=== PATIENT | female | born 1950 | race Caucasian/White ===

== ENCOUNTER 2023-10-19 09:00 | Outpatient (CLI) | payer MEDICARE, SELFPAY ==
--- NOTE | ~2023-10-19 | CT_ITS ---
EXAMINATION: CT abdomen pelvis w con DATE: 10/19/2023 09:55 INDICATION: Unspecified abdominal pain TECHNIQUE: Computed tomography (CT) of the abdomen and pelvis was performed with 100 mL Omnipaque-350 intravenous contrast. Automated exposure control and iterative reconstruction technique were employe d. The dose-length product was 825.83 mGy-cm. COMPARISON: None FINDINGS: There are several calcified pleural and subpleural nodules at the bilateral lower lobes, calcified pa raesophageal node and a few tiny hepatic and splenic calcifications, all consistent with old granulom atous disease. Borderline heart size. Atherosclerotic coronary artery calcification. Bilateral breast implants. Small sliding-type hiatal hernia. Postoperative changes prior antecolic Jhonatan-en-Y gastric bypass procedure. Gallbladder, pancreas, bilateral adrenal glands and kidneys are normal. Moderate to large amount of colonic stool. No dilated loops of gas-filled bowel to suggest obstruction. Normal a ppendix. Bladder is normal. The uterus is not identified and has likely been surgically resected. No free intraperitoneal gas or fluid. No pathologically enlarged abdominal or pelvic lymphadenopathy. Mo derate lumbar spondylosis including grade 1 anterolisthesis L5 on L5 and L5 on S1. Likely chronic L3 superior endplate compression fracture with mild central vertebral body height loss. There are few bi lateral age-indeterminate but likely more recent rib fractures. IMPRESSION: 1. No acute intra-abdominal/pelvic process. 2. Small sliding-type hiatal hernia with change of prior Jhonatan-en-Y gastric bypass procedure. 3. A few bilateral age-indeterminate but likely relatively recent rib fractures. Correlate for point tenderness and history of recent trauma. Reviewed, dictated and finalized at location A. P CLERK IMPRESSION: 1. No acute intra-abdominal/pelvic process. 2. Small sliding-type hiatal hernia with change of prior Jhonatan-en-Y gastric bypa ss procedure. 3. A few bilateral age-indeterminate but likely relatively recent rib fractures . Correlate for point tenderness and history of recent trauma.
[2023-10-19 09:44] LABS: Estimated Glomerular Filt Rate > 60
== END 2023-10-19 09:01 | disposition home or self-care (01) ==
LOC: ANHIMG 09:07
PROVIDERS: PCP Internal Medicine; Visit Provider Nurse Practitioner Family
DX: R10.9 Unspecified abdominal pain (principal); K44.9 Diaphragmatic hernia without obstruction or gangrene
CPT/HCPCS: 74177; Q9967

== ENCOUNTER 2025-03-23 09:15 | Outpatient (CLI) | payer MEDICARE, SELFPAY ==
--- NOTE | ~2025-03-23 | CT_ITS ---
CT Scan of the Chest without Contrast: Clinical Indication: Lung cancer screening, nicotine dependence Technique: Contiguous sections were acquired throughout the chest without intravenous contrast. Dose reduction technique was used on this scan by utilizing automated exposure control and iterative recon struction technique. The dose-length product (DLP) was 85.86 mGy-cm. Findings: There is no evidence of any significant mediastinal, hilar or axillary lymphadenopathy. Calcified med iastinal lymph nodes are present. Coronary artery calcifications are present. There is no evidence of pleural or pericardial effusion. Calcified granulomas are present. There is focal left upper lobe scarring. Images through the upper abdomen reveal no abnormalities. Impression: Lung RADS 2: Benign appearance. 12 month follow-up screening CT advised. Reviewed, dictated and finalized at location . Impression: Lung RADS 2: Benign appearance. 12 month follow-up screening CT advised.
--- OUTSIDE RECORDS SUMMARY | 2025-03-23 09:19 | XMS_ITS ---
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 Laboratory testing for TSH, Vitamin B12, Methylmalonic acid, Vitamin B1, Copper, Zinc,Ceruloplasmin, Vitamin E, Immunotyping, Immunofixation, MARCO ANTONIO and ASIYA was negative. Malignant neoplasm of breast 02/18/2017 Lymphedema of left upper extremity 02/10/2016 Current Treatment and Therapy Plans No current plan information found. Past Treatment and Therapy Plans Lifetime Dose Tracking * Chemical Lifetime Dose Automatic Entry Manual Entr y Fluoro Time 2 minutes 2 minutes 0 minutes Resolved Problems Problem Noted Date Diagnosed Date Resolved Date Estrogen receptor positive status (ER+) 07/15/2015 07/18/2023
--- OUTSIDE RECORDS SUMMARY | 2025-03-23 09:19 | XMS_ITS | Clinical Summary ---
Author Organization [facility] Address [address] [place] [address] Care Team Providers Care Coal Tower Operator Name Role Phone Lebron Beauchamp MD Primary Care Provider [phone] Source Comments [facility],non-owned Affiliates and Associated Physician Practices is amultiple site organization consisting of ambulatory clinics and hospital sitesin [place], [place], [place] and [place]. This disclosure is being madepursuant to the Care Everywhere program and may not contain all information available regarding this patient. Last updated 18.[facility] Allergies No known active allergies Medications * Be aware that medications may not be up to date on this document. Alwaysverify current medications with the patient. ferrous sulfate 325 (65 FE) MG tabletIndications:A nemia Take 325 mg by mouth 2 times daily with breakfast and dinner. Indications: Anemia Activ e cyanocobalamin, vitamin B-12, injectionIndication s:Vitamin B12 Deficiency Inject 1,000 mcg into muscle every 30 days. Indications: Inadequate Vitamin B12 Active B Lpbqabf-D-Djmlt Acid (VITAMIN B COMPLEX WITH C) TABS Take 1 Tab by mouth once daily. Active Flaxseed, Linseed, (FLAXSEED OIL) 1000 MG CAPS Take by mouth. Activ e estradiol (ESTRACE) 1 MG tabletIndications:E strogen Deficiency (Inactive) Take 1 mg by mouth once daily. Takes only 1/2 per day. Doctor is trying to wean off. Indications: Deficiency of the Hormone Estrogen Active amiloride-hydrochlo rothiazide (MODURETIC) 5-50 MG tabletIndications:R ecurrent Calcium Nephrolithiasis Take 1 Tab by mouth. Three times a week, Tuesday Indications: Recurrent Calcium-Containing Kidney Stones Active esomeprazole (NEXIUM) 40 MG capsuleIndications: Symptomatic Gastroesophageal Reflux Disease (Inactive) Take 40 mg by mouth at bedtime. Indications: Gastroesophageal Reflux Disease with Current Symptoms Active citalopram (CELEXA) 40 MG tabletIndications:D epression Take 20 mg by mouth once daily. Indications: Depression Active aspirin 81 MG chew tablet Take 81 mg by mouth once daily. Active fexofenadine-pseudo ephedrine ER 12hr (VENUS-D) 60-120 MG tablet Take 1 Tab by mouth 2 times daily as needed. Active zolpidem (AMBIEN) 10 MG tabletIndications:I nsomnia Take 10 mg by mouth nightly as needed. Indications: Trouble Sleeping Active calcium citrate-vitamin D (CITRACAL PLUS D) 315-200 MG-UNIT tabletIndications:H ypocalcemia Take 1 Tab by mouth once daily. Indications: Low Amount of Calcium in the Blood Active isosorbide mononitrate CR 24hr (IMDUR) 30 MG tablet Take 1 Tab by mouth once daily. 30 Tab 2 012 Active pravastatin (PRAVACHOL) 40 MG tabletIndications:S hortness of breath,Chest pain Take 1 Tab by mouth at bedtime. 30 Tab 2 012 Active piroxicam (FELDENE) 20 MG capsule Take 1 Cap by mouth once daily. 30 Cap 11 014 Active ibuprofen (MOTRIN) 600 MG tablet Take 600 mg by mouth every 6 hours as needed for Pain. Activ e Delphi-3 Fatty Acids (FISH OIL) 1000 MG CAPS capsule Take 1,000 mg by mouth once daily. Active cyclobenzaprine (FLEXERIL) 10 MG tablet Take 10 mg by mouth 3 times daily as needed for Muscle Spasms. Active gabapentin (NEURONTIN) 300 MG capsule Take 300 mg by mouth 3 times daily. Active metFORMIN (GLUCOPHAGE) 500 MG tablet Take 500 mg by mouth 3 times daily. Active naproxen (NAPROSYN) 500 MG tablet Take 500 mg by mouth 2 times daily. Active clonazePAM (KLONOPIN) 1 MG tablet Take 1 mg by mouth 2 times daily. Active prochlorperazine (COMPAZINE) 10 MG tablet Take 10 mg by mouth as needed for Nausea/Vomiting. Active Ginkgo Biloba (GINKOBA PO) Take 60 mg by mouth 2 times daily. 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 Gender Identity Not on file Sexual Orientation Not on file Occupation Industry Job Start Date Job End Date RETIRED Not on file Not on file Not on file Last Filed Vital Signs Vital Sign Reading Time Taken Comments Blood Pressure 120/76 03/23/2012 2:00 PM CDT Pulse 100 03/23/2012 2:00 PM CDT Temperature 36.7 C (98 F) 03/23/2012 11:57 AM CDT Respiratory Rate 20 03/23/2012 11:57 AM CDT Oxygen Saturation 98% 03/23/2012 2:00 PM CDT Inhaled Oxygen Concentration - - Weight 84.4 kg (186 lb) 10/02/2014 12:14 PM METAL BOX MAKER Height 162.6 cm (5' 4) 10/02/2014 12:14 PM METAL BOX MAKER Body Mass Index 31.93 10/02/2014 12:14 PM METAL BOX MAKER Plan of Treatment Health Maintenance Due Date Last Done Comments BONE DENSITY TESTING 1950 COLOGUARD (AGES 45-75) - COL ON CA SCREENING 1950 COLON MONITORING 1950 COLONOSCOPY - COLON CA SCREENING 1950 CT COLONOGRAPHY - COLON CA SCREENING 1950 Colorectal Cancer Screening 1950 FIT - COLON CA SCREENING 1950 FLEX SIG - COLON CA SCREENING 1950 MAMMOGRAM 1950 HEPATITIS C SCREENING 04/14/1969 DTAP/TDAP/TD VACCINES (1 - Tdap) 1970 PNEUMOCOCCAL VACCINE 50+ (1 of 1 - PCV) 2001 ZOSTER VACCINE (1 of 2) 2001 COVID-19 VACCINE ( - 2023-2 5 season) 2024 DEPRESSION SCREENING 10/24/2024 INFLUENZA VACCINE (Season Ended) 2025 Respiratory Syncytial Virus (RSV) Vaccine Pt: or over 60 yrs (1 - 1-dose 75+ series) 2026 HEPATITIS B VACCINE Aged Out No longe r eligible based on patient's age to complete this topic HIB VACCINE Aged Out No longer eligi ble based on patient's age to complete this topic HPV VACCINE Aged Out No longer eligi ble based on patient's age to complete this topic MENINGOCOCCAL (Group B) VACC INE SHARED DECISION-MAKING Aged Out No longer eligibl e based on patient's age to complete this topic MENINGOCOCCAL GROUPS A/C/Y/W VACCINE Aged Out No longer eligible b ased on patient's age to complete this topic Insurance MEDICAID - [place] Advance Directives * FULL RESUSCITATION (Latest Code Status on File) Date Activated Date Inactivated Comments 03/22/2012 5:18 AM 03/24/2012 2:49 AM Care Teams Coal Tower Operator Relationship Specialty Start Date End Date Lebron Beauchamp MD [address] [place] [address] [address] [place] [address] PCP - General 03/22/12
--- OUTSIDE RECORDS SUMMARY | 2025-03-23 09:19 | XMS_ITS | Encounter Summary ---
Author Organization [facility] Address [address] [place] [address] Care Team Providers Care Supervisor Grips Name Role Phone Mae Diamond MD PhD Unavailable Lebron Beauchamp MD Primary Care Provider Bren Owens NP Unavailable [phone] Isabela Zacarias MD Unavailable [phone] Encounter Details Date Type Department Care Team (Late st Contact Info) Description 06/06/2019 Telephone [facility] Advanced Medicine Radiation Oncology [address] [facility] [place] [address] Peggy Mora CMA Social History Tobacco Use Types Packs/Day Years Used Date Smoking Tobacco: Former Smokeless Tobacco: Never Alcohol Use Standard Drinks/Week Comments No 0 (1 standard drink = 0.6 oz pur e alcohol) Comments No Sex and Gender Information Value Date Recorded Sex Assigned at Not on file Legal Sex Female 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 Gender Identity Female 07/03/2021 7:11 AM CDT Sexual Orientation Straight 07/03/2021 7: 11 AM CDT documented as of this encounter Plan of Treatment Not on file documented as of this encounter Visit Diagnoses Not on filedocumented in this encounter Care Teams Supervisor Grips Relationship Specialty Start Date End Date Lebron Beauchamp MD [address] [facility] [place] [address] PCP - General Internal Medicine 12/29/18 Ma, Mae Goins MD PhD 01/03/18 Bren Owens NP [address] [address] Nurse Practitioner Medical Oncology 07/20/22 Isabela Zacarias MD [address] [place] [address] Referring Physician Neurology 03/01/23 documented as of this encounter
--- OUTSIDE RECORDS SUMMARY | 2025-03-23 09:19 | XMS_ITS | Clinical Summary ---
Author Organization [facility] Healthcare Address [address] [place] [address] Care Team Providers Care Junior Designer Name Role Phone Mae Diamond MD PhD Unavailable Lebron Beauchamp MD Primary Care Provider Bren Owens NP Unavailable [phone] Isabela Zacarias MD Unavailable [phone] Allergies No known active allergies Medications cyanocobalamin (Vitamin B-12) 1,000 mcg/mL injectionIndica tions:Vitamin B12 Deficiency Inject 1 mL (1,000 mcg total) into the muscle as instructed every 30 (thirty) days Active AMILoride (MIDAMOR) 5 mg tabletIndicatio ns:hypertension Take 1 tablet (5 mg total) by mouth every morning Active ferrous sulfate ER 324 mg (65 mg iron) EC tabletIndicatio ns:Iron Deficiency Anemia Take 65 mg by mouth 2 (two) times a day with meals Active acetaminophen-a spirin-caffeine (EXCEDRIN MIGRAINE) 250-250-65 mg per tabletIndicatio ns:stop 7 days before surgery Take 2 tablets by mouth every 6 (six) hours as needed for headaches Active furosemide (LASIX) 20 mg tabletIndicatio ns:Edema,hypert ension Take 1 tablet (20 mg total) by mouth every morning 0 Active traZODone (DESYREL) 100 mg tabletIndicatio ns:insomnia associated with depression Take 1 tablet (100 mg total) by mouth nightly 0 Active amLODIPine (NORVASC) 5 mg tabletIndicatio ns:hypertension Take 1 tablet (5 mg total) by mouth daily after lunch 0 Active aspirin 81 mg enteric coated tabletIndicatio ns:heart health Take 1 tablet (81 mg total) by mouth every morning Active atorvastatin (LIPITOR) 40 mg tabletIndicatio ns:hyperlipidem ia Take 1 tablet (40 mg total) by mouth nightly Active gabapentin (NEURONTIN) 300 mg capsuleIndicati ons:Idiopathic peripheral neuropathy TAKE 2 CAPSULES BY MOUTH 3 TIMES A DAY 540 capsule 2 2 Active Additional Information Patient taking differently: 600 mg oral 3 times daily, Indications: Neuropathic Pain, Informant: Self, Reported on 03/09/2023 omega3/dha/epa/ fish oil/vit D3 (OMEGA-3 PLUS VITAMIN D3 ORAL) Take 1 capsule by mouth as needed Active melatonin 10 mg tabletIndicatio ns:sleep Take 1 tablet (10 mg total) by mouth nightly Active vit C/E/Zn/coppr/krystal tein/zeaxan (PRESERVISION AREDS-2 ORAL)Indication s:eye health Take 1 tablet by mouth 2 (two) times a day Active ibuprofen (ADVIL,MOTRIN) 600 mg tablet Take 1 tablet (600 mg total) by mouth every 6 (six) hours 30 tablet 3 Active Additional Information Patient not taking.Reported on 05/12/2023 Abilify 15 mg tablet Active clobetasoL (TEMOVATE) 0.05 % ointment Active clotrimazole (MYCELEX) 10 mg juan pablo Active desoximetasone (TOPICORT) 0.25 % cream Active doxycycline (doxycycline hyclate) 100 mg capsule Active ergocalciferol (VITAMIN D) 50,000 unit capsule Take 1 capsule (50,000 Units total) by mouth once a week 3 Active oxyCODONE (ROXICODONE) 5 mg immediate release tablet Activ e DULoxetine DR (CYMBALTA) 60 mg capsule [address] (NexIUM) 20 mg capsule Take by mouth daily 4 Active HYDROcodone-gita taminophen (NORCO) 7.5-325 mg per tablet Take 1 tablet by mouth 3 (three) times a day as needed 3 Active Ozempic 1 mg/dose (4 mg/3 mL) pen injector injection [address] (NexIUM) 20 mg capsule Take 1 tablet by mouth daily Active clobetasoL (TEMOVATE) 0.05 % ointment Active estradioL (ESTRACE) 0.01 % (0.1 mg/gram) vaginal cream Insert 1 g into the vagina 3 (three) times a week Apply nightly to vagina for 1 week, then Tuesday/Tuesday / Tuesday 42.5 g 5 4 Active letrozole (FEMARA) 2.5 mg tablet TAKE 1 TABLET BY MOUTH EVERY DAY 90 tablet 3 4 Active Active Problems Problem Noted Date Diagnosed Date [...] 02/18/2017 Lymphedema of left upper extremity 02/10/2016 Resolved Problems Problem Noted Date Diagnosed Date Resolved Date Estrogen receptor positive status (ER+) 07/15/2015 07/18/2023 Encounters Date Type Department Care Team Description 12/24/2024 Telephone [facility] Floor [address] [place] [address] Karyan Cerda, RMA from Last 3 Months Immunizations Immunization Administration Dates Next Due Influenza, Trivalent, IM ([facility]) 08/27/2014 Surgical History Surgery Date Site/Laterality Comments CATARACT EXTRACTION W/ INTRAOCULAR LENS IMPLANT 10/24/2020 - 10/23/2021 Bilateral PANNICULECTOMY 10/24/1989 - 10/23/1990 HYSTERECTOMY 10/24/1997 - 10/23/1998 radical total GASTRIC BYPASS 10/24/2008 - 10/23/2009 HEMORRHOID SURGERY 10/24/1999 - 10/23/2000 LITHOTRIPSY 10/24/1999 - 10/23/2000 MASTECTOMY 10/24/2011 - 10/23/2012 Bilateral Bilateral Mastectomy 2011 w/ LND Left REDUCTION MAMMAPLASTY 10/24/2005 - 10/23/2006 TOTAL KNEE ARTHROPLASTY 10/24/2020 - 10/23/2021 Left 2020 TOE AMPUTATION 10/24/2022 - 10/23/2023 Left great toe, second toe FOOT SURGERY 01/06/2018 Left arthoplasty VAGINAL DELIVERY x 3 w/ epidural COLONOSCOPY UPPER GASTROINTESTINAL ENDOSCOPY Medical History Medical History Date Comments Hypertension Hyperlipidemia GERD (gastroesophageal reflux disease) Cancer (HCC) Bilateral Breast Type 2 diabetes mellitus (HCC) Lymph edema Left arm Kidney stone Anemia Depression Sleep apnea uses CPAP Breast cancer (HCC) Family History * Patient is adopted Medical History Relation Name Comments No Known Problems Child son Thyroid disease Daughter 1 Thyroid disease Daughter 2 Anesthesia problems Neg Hx Relation Name Status Comments Child son Alive Daughter 1 Alive Daughter 2 Alive Social History Tobacco Use Types Packs/Day Years Used Date Smoking Tobacco: Former Cigarettes 2.5 15 1 - 1994 Smokeless Tobacco: Never Tobacco Cessation:Counseling Given: Not Answered Alcohol Use Standard Drinks/Week Comments No 0 (1 standard drink = 0.6 oz pur e alcohol) AUDIT-C Answer Date Recorded Q1: How often do you have a drink containing alcohol? Never 03/09/2023 Q2: How many drinks containi ng alcohol do you have on a typical day when you are drinking? Patient does not drink Q3: How often do you have si x or more drinks on one occasion? Never 03/09/2023 Personal Safety Answer Date Recorded Have you ever been in or are you currently in a harmful physical or emotional relationship or is someone making you feel afraid or unsafe? Denies 04/05/2023 Comments No Sex and Gender Information Value Date Recorded Sex Assigned at Not on file Legal Sex Female 1:15 AM CUSTOMER SUPPORT CONSULTANT Gender Identity Female 07/03/2021 7:11 AM CDT Sexual Orientation Straight 07/03/2021 7: 11 AM CDT Obstetrics History Para Term AB IAB SAB Ectopic Multiple Livin g Live Births 4 3 3 1 1 3 Date Outcome GA Total Labor Labor/2nd/3rd Weight Sex Type Anes PTL [place] A1 A5 Name Clin Term Term Term SAB Last Filed Vital Signs Vital Sign Reading Time Taken Comments Blood Pressure 124/78 11/04/2023 10:35 AM CUSTOMER SUPPORT CONSULTANT Pulse 83 09/20/2023 8:48 AM CUSTOMER SUPPORT CONSULTANT Temperature 36.3 C (97.3 F) 09/20/2023 8:48 AM CUSTOMER SUPPORT CONSULTANT Respiratory Rate 18 09/20/2023 8:48 AM CUSTOMER SUPPORT CONSULTANT Oxygen Saturation 98% 09/20/2023 8:48 AM CUSTOMER SUPPORT CONSULTANT Inhaled Oxygen Concentration - - Weight 78.2 kg (172 lb 6.4 oz) 11/04/2023 10:35 AM CUSTOMER SUPPORT CONSULTANT Height 160 cm (5' 3) 11/04/2023 10:35 AM CUSTOMER SUPPORT CONSULTANT Body Mass Index 30.54 11/04/2023 10:35 AM CUSTOMER SUPPORT CONSULTANT Plan of Treatment Health Maintenance Due Date Last Done Comments Breast Cancer Screening-Mammogram 1951 Colon Cancer Screening-Colonoscopy 1951 Depression Screening 1951 Hepatitis C Screening 1951 DTaP/Tdap/Td Vaccine (1 - Tdap) 1962 Hepatitis B Screening 1969 Pneumococcal vaccine 65+ (1 of 2 - PCV) 1970 Zoster Vaccine (1 of 2) 1970 Well Visit 65+ 2016 Fall Risk Assessment 04/05/2024 04/05/2023 Influenza Vaccine (Season Ended) 2025 08/27/20 14 Osteoporosis Screening-Bone Density Scan 11/04/2025 11/04/2023, 07/23/2021, 07/16/2015, Additional history exists Medical Devices Implanted Type Area Farm Contractor Buyer Device Identifier Shelf Expiration Date Model / Serial / Lot Implant Fixation L6 Mm Od3.4 Mm Odsec3 Mm Toe 2 Step Hammer - [id number] Implanted:Qty : 2 on 01/06/2018 by Lebron Flaherty DPM at [facility] Screw Left: Metatarsal [employer] 6 / / Description:6mm implant in b oth third and fourth digits Implant Fixation L8 Mm Od3.4 Mm Odsec3 Mm Toe 2 Step Hammer - [id number] Implanted:Qty : 1 on 01/06/2018 by Lebron Flaherty DPM at [facility] Screw Left: Metatarsal [employer] 8 / / Description:8mm implant in s econd digit Wire Fixation Sandie Standard L6 In Od.45 In - [id number] Implanted:Qty : 3 on 01/06/2018 by Lebron Flaherty DPM at [facility] Wire Left: Metatarsal [employer] 4 / / Description:2nd, 3rd, 4th to e Procedures Procedure Name Priority Date/Time Associated Diagnosis Comments DEXA AXIAL SKELETON BONE DENSITY 1 OR MORE SITES Schedule Routine, Read Routine (OP Routine) 11/04/2023 10:22 AM CUSTOMER SUPPORT CONSULTANT Malignant neoplasm of left breast in female, estrogen receptor positive, unspecified site of breast (HCC) Use of aromatase inhibitors from Last 3 Months or Most Recently Relevant to Health Maintenance Results * Dexa Axial Skeleton Bone Density 1 or 2 Site (11/04/2023 10:22 AM CUSTOMER SUPPORT CONSULTANT) Anatomical Region Laterality Modality Body N/A Mammography 11/04/2023 10:4 5 AM CUSTOMER SUPPORT CONSULTANT Narrative 11/04/2023 10:46 AM CUSTOMER SUPPORT CONSULTANT EXAM DESCRIPTION: DEXA AXIAL SKELETON BONE DENSITY 1 OR MORE SITES REASON FOR STUDY: 73 y/o year old F with given history of: On aromatase inhibitor therapy for breast carcinoma. Patient takes vitamin-D. History of prior fracture Farm Contractor Buyer/Model: [employer] A (S/N [id number]) CLINICAL INFORMATION: Current height: 63 inches Maximum height: 65 inches Weight: 170 pounds Risk factors: Prior fracture COMPARISON: None available FINDINGS: AP LUMBAR SPINE L1-L4: Total BMD is 1.038 g/cm2 T-score is -0.1 LEFT HIP: Total BMD is 0.652 g/cm2 T-score is -2.4 Femoral neck BMD is 0.628 g/cm2 T-score is -2.0 FRAX: 10 year risk for a major osteoporotic fracture is 18 %, 10 year risk for a hip fracture is 3.6 % IMPRESSION: Low bone mass REFERENCE: Bone mineral density: Normal (T-score above or = -1.0) Low bone mass (T-score between -1.0 and -2.5) replaces the previously used term osteopenia Osteoporosis (T-score = or below -2.5) Medical evaluation for secondary causes of low bone mineral density may be appropriate. FRAX is a World Health Organization validated fracture risk assessment tool that calculates a person's 10 year probability of a major osteoporosis related fracture and hip fracture. According to the National Osteoporosis Foundation guidelines, postmenopausal women and men age 50 or older with low bone mass and a 10 year probability of a major osteoporosis related fracture = or greater than 20% or a 10 year probability of a hip fracture = or greater than 3% should be considered for treatment. For further information, including treatment recommendations, please refer to the 2019 ISCD Official Positions (http://www.iscd.org) and the NOF's Clinician's Guide to Prevention and Treatment of Osteoporosis (http://www.nof.org/professionals/clinical-guidelines) THIS IS AN ELECTRONICALLY VERIFIED FINAL REPORT 11/04/2023 10:46 AM - Electronically signed by Pari Ayon M.D. TW: TW Report ID: [id number] Reading Location: [id number] Procedure Note Pari Ayon MD - 11/04/2023 EXAM DESCRIPTION: DEXA AXIAL SKELETON BONE DENSITY 1 OR MORE SITES REASON FOR STUDY: 73 y/o year old F with given history of: Onaromatase inhibitor therapy for breast carcinoma. Patient takes vitamin-D. Historyof prior fracture Farm Contractor Buyer/Model: [employer] A (S/N [id number]) CLINICAL INFORMATION: Current height: 63 inches Maximum height: 65 inches Weight: 170 pounds Risk factors: Prior fracture COMPARISON: None available FINDINGS: AP LUMBAR SPINE L1-L4: Total BMD is 1.038 g/cm2 T-score is -0.1 LEFT HIP: Total BMD is 0.652 g/cm2 T-score is -2.4 Femoral neck BMD is 0.628 g/cm2 T-score is -2.0 FRAX: 10 year risk for a major osteoporotic fracture is 18 %, 10 year risk for ahip fracture is 3.6 % IMPRESSION: Low bone mass REFERENCE: Bone mineral density: Normal (T-score above or = -1.0) Low bone mass (T-score between -1.0 and -2.5) replaces thepreviously used term osteopenia Osteoporosis (T-score = or below -2.5) Medical evaluation for secondary causes of low bone mineral density may be appropriate. FRAX is a World Health Organization validated fracture risk assessmenttool that calculates a person's 10 year probability of a major osteoporosisrelated fracture and hip fracture. According to the National OsteoporosisFoundation guidelines, postmenopausal women and men age 50 or older with low bonemass and a 10 year probability of a major osteoporosis related fracture = or greater than 20% or a 10 year probability of a hip fracture = or greaterthan 3% should be considered for treatment. For further information, including treatment recommendations, please referto the 2019 ISCD Official Positions (http://www.iscd.org) and the NOF's Clinician's Guide to Prevention and Treatment of Osteoporosis (http://www.nof.org/professionals/clinical-guidelines) THIS IS AN ELECTRONICALLY VERIFIED FINAL REPORT 11/04/2023 10:46 AM - Electronically signed by Pari Ayon M.D. TW: LELAND Report ID: [id number] Reading Location: [id number] us Bren Owens NP IMG DXA PROCEDURES Lety nikki Result from Last 3 Months or Most Recently Relevant to Health Maintenance Insurance UHC MDCR HMO REF [facility] Address: [address] [address] [place] [address] UHC MEDICARE ADVANTAGE [facility] Address: [address] [address] [place] [address] MEDICARE ADVANTAGE [facility] MEDIC[facility] Address: [address] [address] [place] [address] Advance Directives For more information, please contact: [phone] * Full Code (Latest Code Status on File) Date Activated Date Inactivated Comments 01/06/2018 10:50 AM 01/06/2018 1:53 PM Care Teams Junior Designer Relationship Specialty Start Date End Date Lebron Beauchamp MD [address] [address] PCP - General Internal Medicine 12/29/18 Mae Diamond MD PhD 01/03/18 Bren Owens NP [address] [address] Nurse Practitioner Medical Oncology 07/20/22 Isabela Zacarias MD [address] [address] Referring Physician Neurology 03/01/23
--- OUTSIDE RECORDS SUMMARY | 2025-03-23 09:19 | XMS_ITS | Referral Summary ---
Author Organization [facility] Healthcare Address [address] [place] [address] Care Team Providers Care Aerial Photogrammetrist Name Role Phone Mae Diamond MD PhD Unavailable Lebron Beauchamp MD Primary Care Provider Bren Owens NP Unavailable [phone] Isabela Zacarias MD Unavailable Encounters Date Type Department Care Team Description 12/24/2024 Telephone [facility] Oncology [address] [facility] [address] [place] [address] Karyna Cerda, JONAH from Last 3 Months Allergies No known active allergies Medications cyanocobalamin [...] Estrogen receptor positive status (ER+) 07/15/2015 07/18/2023 Immunizations Immunization Administration Dates Next Due Influenza, Trivalent, IM (MDV) 08/27/2014 Social History Tobacco Use Types Packs/Day Years Used Date Smoking Tobacco: Former Cigarettes 2.5 15 1 980 - 1994 Smokeless Tobacco: Never Tobacco Cessation:Counseling [...] on file Legal Sex Female 1:15 AM BACK TENDER Gender Identity Female 07/03/2021 7:11 AM CDT Sexual Orientation Straight 07/03/2021 7: 11 AM CDT Last Filed Vital Signs Vital Sign Reading Time Taken Comments Blood Pressure 124/78 11/04/2023 10:35 AM BACK TENDER Pulse 83 09/20/2023 8:48 AM BACK TENDER Temperature 36.3 C (97.3 F) 09/20/2023 8:48 AM BACK TENDER Respiratory Rate 18 09/20/2023 8:48 AM BACK TENDER Oxygen Saturation 98% 09/20/2023 8:48 AM BACK TENDER Inhaled Oxygen Concentration - - Weight 78.2 kg (172 lb 6.4 oz) 11/04/2023 10:35 AM BACK TENDER Height 160 cm (5' 3) 11/04/2023 10:35 AM BACK TENDER Body Mass Index 30.54 11/04/2023 10:35 AM BACK TENDER Plan of Treatment Not on file Medical Devices Implanted Type Area Admissions Consultant Device Identifier Shelf Expiration Date Model / Serial / Lot Implant Fixation L6 Mm Od3.4 Mm Odsec3 Mm Toe 2 Step Hammer - [id number] Implanted:Qty : 2 on 01/06/2018 by Lebron Flaherty DPM at [facility] Screw Left: Metatarsal [employer] 6 / / Description:6mm implant in b oth third and fourth digits Implant Fixation L8 Mm Od3.4 Mm Odsec3 Mm Toe 2 Step Hammer - [id number] Implanted:Qty : 1 on 01/06/2018 by Lebron Flaherty DPM at [facility] Screw Left: Metatarsal [employer] 8 / / Description:8mm implant in s econd digit Wire Fixation Sandie Standard L6 In Od.45 In - [id number] Implanted:Qty : 3 on 01/06/2018 by Lebron Flaherty DPM at [facility] Wire Left: Metatarsal [employer] 4 / / Description:2nd, 3rd, 4th to e Procedures Procedure Name Priority Date/Time Associated Diagnosis Comments DEXA AXIAL SKELETON BONE DENSITY 1 OR MORE SITES Schedule Routine, Read Routine (OP Routine) 11/04/2023 10:22 AM BACK TENDER Malignant neoplasm of left breast in female, estrogen receptor positive, unspecified site of breast (HCC) Use of aromatase inhibitors from Last 3 Months or Most Recently Relevant to Health Maintenance Results * Dexa Axial Skeleton Bone Density 1 or 2 Site (11/04/2023 10:22 AM BACK TENDER) Anatomical Region Laterality Modality Body N/A Mammography 11/04/2023 10:4 5 AM BACK TENDER Narrative 11/04/2023 10:46 AM BACK TENDER EXAM DESCRIPTION: DEXA AXIAL SKELETON BONE DENSITY 1 OR MORE SITES REASON FOR STUDY: 73 y/o year old F with given history of: On aromatase inhibitor therapy for breast carcinoma. Patient takes vitamin-D. History of prior fracture Admissions Consultant/Model: [employer] A (S/N [id number]) CLINICAL INFORMATION: Current height: 63 inches Maximum [...] Pari Ayon M.D. TW: TW Report ID: [id number] Reading Location: [id number] Procedure Note Pari Ayon MD - 11/04/2023 EXAM DESCRIPTION: DEXA AXIAL SKELETON BONE DENSITY 1 OR MORE SITES REASON FOR STUDY: 73 y/o year old F with given history of: Onaromatase inhibitor therapy for breast carcinoma. Patient takes vitamin-D. Historyof prior fracture Admissions Consultant/Model: [employer] Horizon A (S/N [id number]) CLINICAL INFORMATION: Current height: 63 inches Maximum [...] 11/04/2023 10:46 AM - Electronically signed by aPri Ayon M.D. TW: LELAND Report ID: [id number] Reading Location: [id number] Bren Owens NP IMG DXA PROCEDURES Lety l Result from Last 3 Months or Most Recently Relevant to Health Maintenance Insurance [facility] MDCR HMO REF [facility] Address: [address] [address] [place] [address] UHC MEDICARE ADVANTAGE [facility] MED[facility] Address: [address] [address] [place] [address] MEDICARE ADVANTAGE [facility] MEDIC[facility] Address: [address] [address] [place] [address] Advance Directives For more information, please contact: [phone] * Full Code (Latest Code Status on File) Date Activated Date Inactivated Comments 01/06/2018 10:50 AM 01/06/2018 1:53 PM Care Teams Aerial Photogrammetrist Relationship Specialty Start Date End Date Lebron Beauchamp MD [address] [address] PCP - General Internal Medicine 12/29/18 Mae Diamond MD PhD 01/03/18 Bren Owens, MILO [address] [address] Nurse Practitioner Medical Oncology 07/20/22 Isabela Zacarias MD [address] [address] Referring Physician Neurology 03/01/23
--- OUTSIDE RECORDS SUMMARY | 2025-03-23 09:19 | XMS_ITS | Clinical Summary ---
Author Organization [facility] Address [address] [place] [address] Phone Care Team Providers Care Shale Miner Blasting Name Role Phone Chantale Delarosa MD Primary Care Provider [phone] Allergies No known active allergies Medications P-EPHED HCL/FEXOFENADIN E HCL (VENUS-D 12 HOUR PO) Take by mouth. Active AMILORIDE HCL (AMILORIDE PO) Take by mouth. Active aspirin (ANITRA) 81 mg Oral Tab Take 81 mg by mouth daily. Active MULTIVITAMINS W-MINERALS/LUT (CENTRUM SILVER PO) Take by mouth. Active estradiol (ESTRACE) 1 mg Oral tablet Take 1 mg by mouth daily. Active ferrous sulfate 325 mg (65 mg Iron) Oral tablet Take 325 mg by mouth daily. Active OMEGA-3 FATTY ACIDS (FISH OIL PO) Take by mouth. Active ESOMEPRAZOLE MAG TRIHYDRATE (NEXIUM PO) Take by mouth. Active piroxicam (FELDENE) 10 mg Oral Cap Take 10 mg by mouth daily. Active pravastatin (PRAVACHOL) 40 mg Oral tablet Take 40 mg by mouth Daily LATE. Active zolpidem (AMBIEN) 10 mg Oral tablet Take 10 mg by mouth nightly as needed for Insomnia. Active CALCIUM PO Take by mouth. Active Active Problems Patient Care Coordination No te Formatting of this note migh t be different from the original. Primary Care: Lebron Beauchamp MD Referring Provider: Jayme Saavedra [address] [place] [address] Other: Problem Noted Date Diagnosed Date Diffuse cystic mastopathy 12/19/2009 Abnormal mammogram, unspecified 11/28/2009 Gastric ulcer, unspecified a s acute or chronic, without mention of hemorrhage, perforation, or obstruction Colitis Kidney stones Unspecified deficiency anemia Social History Tobacco Use Types Packs/Day Years Used Date Smoking Tobacco: Former Comments: Alcohol Use Standard Drinks/Week Comments No 0 (1 standard drink = 0.6 oz pur e alcohol) Comments No Sex and Gender Information Value Date Recorded Sex Assigned at Not on file Legal Sex Female 5:50 AM MECHANICAL OPERATOR Gender Identity Not on file Sexual Orientation Not on file Last Filed Vital Signs Vital Sign Reading Time Taken Comments Blood Pressure 147/97 11/28/2009 1:49 PM MECHANICAL OPERATOR Pulse - - Temperature - - Respiratory Rate - - Oxygen Saturation - - Inhaled Oxygen Concentration - - Weight 86.6 kg (191 lb) 11/28/2009 1:49 PM MECHANICAL OPERATOR Height 162.6 cm (5' 4) 11/28/2009 1:49 PM MECHANICAL OPERATOR Body Mass Index 32.79 11/28/2009 1:49 PM MECHANICAL OPERATOR Plan of Treatment Health Maintenance Due Date Last Done Comments DTAP/TDAP/TD VACCINES (1 - Tdap) 1970 COLORECTAL SCREENING 1996 Colorectal Cancer Screening 1996 FIT-DNA Q 3 years 1996 FIT/FOBT Q 1 year 1996 Flex Sig/CT Colonography Q 5 years 1996 PNEUMOCOCCAL VACCINE 50+ YEA RS (1 of 1 - PCV) 2001 ZOSTER VACCINE (1 of 2) 2001 BREAST CANCER SCREENING 06/04/2011 06/04/20 10, 05/02/2009, 04/23/2009, Additional history exists OSTEOPOROSIS SCREENING 2016 INFLUENZA VACCINE (#1) 2024 Preventative Visit- Commercial 10/24/2024 RSV VACCINE (60+ or ) (1 - 1-dose 75+ series) 2026 Procedures Procedure Name Priority Date/Time Associated Diagnosis Comments MAMMO SCREEN BILAT W OR WO CAD Routine 06/04/2010 from Last 3 Months or Most Recently Relevant to Health Maintenance Results * MAMMO DIGITAL SCREEN BILAT (06/04/2010) Anatomical Region Laterality Modality Breast Bilateral Other us Abstract Provider MAMMO ORDERABLES Final Result from Last 3 Months or Most Recently Relevant to Health Maintenance Insurance [employer] OPEN ACCESS [employer] Care Teams Shale Miner Blasting Relationship Specialty Start Date End Date Chantale Delarosa MD [address] [place] [address] PCP - General Internal Medicine 10/05/21
--- OUTSIDE RECORDS SUMMARY | 2025-03-23 09:19 | XMS_ITS | Patient Health Record ---
Author Organization [facility] Address [address] [place] [address] Care Team Providers Care Handle Bender Name Role Phone Neil Rivera Primary Care Provider [phone] Charlee Osborn Unavailable [phone] Brisa Sow Unavailable [phone] Christopher Rob Unavailable [phone] Allergies No Known Allergies Reason For Referral No Information Medications Medication SIG (Take, Route, Frequency, Duration) Notes Start Date End Date Status traZODone HCl 300 MG 1 tablet Orally at bedtime as needed for 30 days Please fill on Tuesday per patient request. Thanks! Active DULoxetine HCl 60 MG 1 capsule Orally On ce a day for 30 days Please fill on Tuesday per patient request. Thanks! Active Abilify 15 MG 0.5 tablet Orally at night for 30 days Please fill on Tuesday per patient request. Thanks! Active Ozempic (1 MG/DOSE) 4 MG/3ML 1mg once weekly Subcutaneous Active Furosemide 20 MG 1 tablet Orally Once a day for 30 day(s) 02/19/2020 Active Atorvastatin Calcium 40 MG 1 tablet Orally Once a day for 30 day(s) Active metFORMIN HCl 500 MG 1 tablet with a gideon l Orally Once a day for 30 day(s) Active Social History Tobacco Use: Social History Observation Description Date Details (start date - stop date) Former Smoker NA - NA Sex Assigned At : Social History Observation Description Sex Assigned At Female Dont use, Tobacco Use/Smoking Question Answer Notes Are you a nonsmoker Tobacco Control (Standard) Question Answer Notes Tobacco use: Former smoker Problems Problem Type SNOMED Code ICD Code Onset Dates Problem Status W/U Status Risk Notes Problem Bipolar II disorder (27639893) Bipolar II disorder (F31.81) 08/03/20 22 Active confirmed history of hypomanic symptoms lasting few days with sleep changes, irritability , increased energy/goal oriented behaviors as well as low depressive episodes. Problem [id number] Major depression (F32.9) 04/30/20 16 Active confirmed Problem Posttraumatic stress disorder (81156589) PTSD (post-traumat ic stress disorder) (F43.10) Active confirmed Problem Acute stress disorder (61989489) Acute stress disorder (F43.9) Active confirmed Problem Difficulty sleeping (667099413) Difficulty sleeping (G47.9) Active confirmed Problem Stress (17842044) Stress (F43.9) Active confirmed Vital Signs Heart Rate 97 /min 04/25/2024 Respiratory Rate 16 /min 04/25/2024 Oximetry 98 % 04/25/2024 Blood pressure diastolic 68 mm Hg 04/25/2024 Height 63.5 in 12/25/2024 Blood pressure systolic 122 mm Hg 04/25/2024 Weight 158 lbs 12/25/2024 BMI 27.55 kg/m2 12/25/2024 Encounters Encounter Location Date Provider Diagnosis [address] [address] 03/29/2024 Brisa Magi Major depression F32.9 ; PTSD (post-traumatic stress disorder) F43.10 and Bipolar II disorder F31.[address] [address] 04/25/2024 Brisa Sow Nutritional counseling Z71.3 ; Major depression F32.9 ; PTSD (post-traumatic stress disorder) F43.10 and Bipolar II disorder F31.[address] [address] 06/14/2024 Brisadenzel Sow Major depression F32.9 ; PTSD (post-traumatic stress disorder) F43.10 ; Bipolar II disorder F31.81 and Nutritional counseling Z71.[address] [address] 09/05/2024 Christopher Rob Bipolar II disorder F31.81 ; Major depression F32.9 ; PTSD (post-traumatic stress disorder) F43.10 ; Difficulty sleeping G47.9 and Nutritional counseling Z71.[address] [address] 10/02/2024 Christopher Rob Bipolar II disorder F31.81 ; Major depression F32.9 ; PTSD (post-traumatic stress disorder) F43.10 ; Difficulty sleeping G47.9 and Nutritional counseling Z71.[address] [address] 11/01/2024 Christopher Rob Bipolar II disorder F31.81 ; Major depression F32.9 ; PTSD (post-traumatic stress disorder) F43.10 ; Difficulty sleeping G47.9 and Nutritional counseling Z71.[address] [address] 12/25/2024 Christopher Rob Bipolar II disorder F31.81 ; Major depression F32.9 ; PTSD (post-traumatic stress disorder) F43.10 ; Difficulty sleeping G47.9 and Nutritional counseling Z71.[address] [address] 03/23/2024 Brisa Sow PTSD (post-traumatic stress disorder) F43.10 ; Major depression F32.9 and Bipolar II disorder F31.[address] [address] 09/05/2024 Christopher Rob Assessments Encounter Date Diagnosis (ICD Code) Assessment Notes Treatment Notes Treatment Clinical Notes Section Notes 03/23/2024 PTSD (post-traumatic stress disorder) (ICD-10 - F43.10) 03/29/2024 Major depression (ICD-10 - F32.9) Pt reports that she is doing well on medications at this time and reports that she is not wanting to make any med changes at this time. Pt denies SI/HI. Encouraged pt to schedule therapy appt. Pt has been tolerating med well. 04/25/2024 Nutritional counseling (ICD-10 - Z71.3) 09/05/2024 Bipolar II disorder (ICD-10 - F31.81) history of hypomanic symptoms lasting few days with sleep changes, irritability, increased energy/goal oriented behaviors as well as low depressive episodes. Duration (acute/chronic), stability (controlled/uncontroll ed): Chronic, mildly uncontrolled Current medications/efficacy: Somewhat, room for improvement Previous medication trials: Hydrocodone, melatonin, Ambien, aripiprazole, duloxetine Current/previous therapies: Had been following up with therapy, reportedly lost contact, cannot remember when last appointment was Examination as documented - see pertinent aspects of office visit documentation. Pertinent diagnostics: LABS MONITORED BY PCP Differential diagnoses: RECOMMENDATIONS: INCREASE trazodone as prescribed to evens with mood/sleep - educated patient/guardian on adverse effects, risks and benefits, as well as alternative treatments Continue/modify other medications as prescribed - educated patient/guardian on adverse effects, risks and benefits, as well as alternative treatments Consume well balanced diet, preferably low in saturated fats (solid at room temperature, such as butter, margarine, Crisco, etc) and low in sodium (<2,000mg per day). Consume plenty of fruits/vegetables, healthy grains/whole grains, unsaturated/healthy fats (liquid at room temperature, such as olive oil, sunflower seed oil, canola, vegetable, etc.). Exercise regularly - Develop an exercise routine. 30 minutes of moderate exercise (walking at a brisk pace) 5 times per week is recommended. You should work hard enough to cause a sweat but still be able to talk with others while exercising. Exercise improves overall health - improves blood pressure and blood sugar, helps control weight, reduces stress, and improves mood. Practice stress reduction techniques, such as guided imagery, journaling, aromatherapy, acupuncture/acupressur e, deep breathing, etc. Practice healthy sleep hygiene - maintain regular routine, no caffeine after 1PM, no exercise 1-2 hours prior to bedtime, keep bedroom dark and cool, no TV or electronics while in bed. Consider melatonin as needed. Consider cognitive behavioral therapy for insomnia (CBT-I). Consider/Continue therapy. Consider/Continue substance cessation therapy as needed - contact office if desiring medication assisted therapy. Manage co-morbid conditions. Continue monitoring symptoms - report persistent or worsening/concerning symptoms to the office or go to the ER. For mental health CRISIS, please reach out to [phone] (National Suicide and Crisis Lifeline), 911, go to the emergency department, or contact the [facility] Crisis Unit/Team. Follow up as scheduled in 4 weeks or sooner if necessary. Follow up with PCP and/or other specialists as advised. NEXT STEP: Consider increasing trazodone pending response/tolerability. Considering increasing aripiprazole as needed. Consider increasing duloxetine as needed. Consider adding other SSRI/antidessant as needed. Consider adding other mood stabilizing agent as needed, such as lamotrigine. 09/05/2024 Major depression (ICD-10 - F32.9) See assessment and plan for bipolar II disorder 10/02/2024 Bipolar II disorder (ICD-10 - F31.81) history of hypomanic symptoms lasting few days with sleep changes, irritability, increased energy/goal oriented behaviors as well as low depressive episodes. Duration (acute/chronic), stability (controlled/uncontroll ed): Chronic, noticeably improved with recent medication adjustments, see HPI Current medications/efficacy: Somewhat, room for improvement Previous medication trials: Hydrocodone, melatonin, Ambien, aripiprazole, duloxetine Current/previous therapies: Had been following up with therapy, reportedly lost contact, cannot remember when last appointment was Examination as documented - see pertinent aspects of office visit documentation. Pertinent diagnostics: LABS MONITORED BY PCP Differential diagnoses: RECOMMENDATIONS: CONTINUE trazodone as prescribed to evens with mood/sleep - educated patient/guardian on adverse effects, risks and benefits, as well as alternative treatments Continue/modify other medications as prescribed - educated patient/guardian on adverse effects, risks and benefits, as well as alternative treatments Consume well balanced diet, preferably low in saturated fats (solid at room temperature, such as butter, margarine, Crisco, etc) and low in sodium (<2,000mg per day). Consume plenty of fruits/vegetables, healthy grains/whole grains, unsaturated/healthy fats (liquid at room temperature, such as olive oil, sunflower seed oil, canola, vegetable, etc.). Exercise regularly - Develop an exercise routine. 30 minutes of moderate exercise (walking at a brisk pace) 5 times per week is recommended. You should work hard enough to cause a sweat but still be able to talk with others while exercising. Exercise improves overall health - improves blood pressure and blood sugar, helps control weight, reduces stress, and improves mood. Practice stress reduction techniques, such as guided imagery, journaling, aromatherapy, acupuncture/acupressur e, deep breathing, etc. Practice healthy sleep hygiene - maintain regular routine, no caffeine after 1PM, no exercise 1-2 hours prior to bedtime, keep bedroom dark and cool, no TV or electronics while in bed. Consider melatonin as needed. Consider cognitive behavioral therapy for insomnia (CBT-I). Consider/Continue therapy. Consider/Continue substance cessation therapy as needed - contact office if desiring medication assisted therapy. Manage co-morbid conditions. Continue monitoring symptoms - report persistent or worsening/concerning symptoms to the office or go to the ER. For mental health CRISIS, please reach out to [phone] ([place] Suicide and Crisis Lifeline), 911, go to the emergency department, or contact the [facility] Crisis Unit/Team. Follow up as scheduled in 4 weeks or sooner if necessary. Follow up with PCP and/or other specialists as advised. NEXT STEP: Consider increasing trazodone pending response/tolerability. Considering increasing aripiprazole as needed. Consider increasing duloxetine as needed. Consider adding other SSRI/antidessant as needed. Consider adding other mood stabilizing agent as needed, such as lamotrigine. 11/01/2024 Bipolar II disorder (ICD-10 - F31.81) history of hypomanic symptoms lasting few days with sleep changes, irritability, increased energy/goal oriented behaviors as well as low depressive episodes. Duration (acute/chronic), stability (controlled/uncontroll ed): Chronic, well controlled with current medication regimen, see HPI Current medications/efficacy: Yes Previous medication trials: Hydrocodone, melatonin, Ambien, aripiprazole, duloxetine Current/previous therapies: Had been following up with therapy, reportedly lost contact, cannot remember when last appointment was Examination as documented - see pertinent aspects of office visit documentation. Pertinent diagnostics: LABS MONITORED BY PCP Differential diagnoses: RECOMMENDATIONS: Continue medications as prescribed - educated patient/guardian on adverse effects, risks and benefits, as well as alternative treatments Consume well balanced diet, preferably low in saturated fats (solid at room temperature, such as butter, margarine, Crisco, etc) and low in sodium (<2,000mg per day). Consume plenty of fruits/vegetables, healthy grains/whole grains, unsaturated/healthy fats (liquid at room temperature, such as olive oil, sunflower seed oil, canola, vegetable, etc.). Exercise regularly - Develop an exercise routine. 30 minutes of moderate exercise (walking at a brisk pace) 5 times per week is recommended. You should work hard enough to cause a sweat but still be able to talk with others while exercising. Exercise improves overall health - improves blood pressure and blood sugar, helps control weight, reduces stress, and improves mood. Practice stress reduction techniques, such as guided imagery, journaling, aromatherapy, acupuncture/acupressur e, deep breathing, etc. Practice healthy sleep hygiene - maintain regular routine, no caffeine after 1PM, no exercise 1-2 hours prior to bedtime, keep bedroom dark and cool, no TV or electronics while in bed. Consider melatonin as needed. Consider cognitive behavioral therapy for insomnia (CBT-I). Consider/Continue therapy. Consider/Continue substance cessation therapy as needed - contact office if desiring medication assisted therapy. Manage co-morbid conditions. Continue monitoring symptoms - report persistent or worsening/concerning symptoms to the office or go to the ER. For mental health CRISIS, please reach out to [phone] ([place] Suicide and Crisis Lifeline), 911, go to the emergency department, or contact the [facility] Crisis Unit/Team. Follow up as scheduled in 2 months or sooner if necessary. Follow up with PCP and/or other specialists as advised. NEXT STEP: Consider increasing trazodone as needed. Considering increasing aripiprazole as needed. Consider increasing duloxetine as needed. Consider adding other SSRI/antidessant as needed. Consider adding other mood stabilizing agent as needed, such as lamotrigine. 12/25/2024 Bipolar II disorder (ICD-10 - F31.81) history of hypomanic symptoms lasting few days with sleep changes, irritability, increased energy/goal oriented behaviors as well as low depressive episodes. Duration (acute/chronic), stability (controlled/uncontroll ed): Chronic, well controlled with current medication regimen, see HPI Current medications/efficacy: Yes Previous medication trials: Hydrocodone, melatonin, Ambien, aripiprazole, duloxetine Current/previous therapies: Had been following up with therapy, reportedly lost contact, cannot remember when last appointment was Examination as documented - see pertinent aspects of office visit documentation. Pertinent diagnostics: LABS MONITORED BY PCP Differential diagnoses: RECOMMENDATIONS: Continue medications as prescribed - educated patient/guardian on adverse effects, risks and benefits, as well as alternative treatments Consume well balanced diet, preferably low in saturated fats (solid at room temperature, such as butter, margarine, Crisco, etc) and low in sodium (<2,000mg per day). Consume plenty of fruits/vegetables, healthy grains/whole grains, unsaturated/healthy fats (liquid at room temperature, such as olive oil, sunflower seed oil, canola, vegetable, etc.). Exercise regularly - Develop an exercise routine. 30 minutes of moderate exercise (walking at a brisk pace) 5 times per week is recommended. You should work hard enough to cause a sweat but still be able to talk with others while exercising. Exercise improves overall health - improves blood pressure and blood sugar, helps control weight, reduces stress, and improves mood. Practice stress reduction techniques, such as guided imagery, journaling, aromatherapy, acupuncture/acupressur e, deep breathing, etc. Practice healthy sleep hygiene - maintain regular routine, no caffeine after 1PM, no exercise 1-2 hours prior to bedtime, keep bedroom dark and cool, no TV or electronics while in bed. Consider melatonin as needed. Consider cognitive behavioral therapy for insomnia (CBT-I). Consider/Continue therapy. Consider/Continue substance cessation therapy as needed - contact office if desiring medication assisted therapy. Manage co-morbid conditions. Continue monitoring symptoms - report persistent or worsening/concerning symptoms to the office or go to the ER. For mental health CRISIS, please reach out to [phone] (National Suicide and Crisis Lifeline), 911, go to the emergency department, or contact the [facility] Crisis Unit/Team. Follow up as scheduled in 3 months or sooner if necessary. Follow up with PCP and/or other specialists as advised. NEXT STEP: Consider increasing trazodone as needed. Considering increasing aripiprazole as needed. Consider increasing duloxetine as needed. Consider adding other SSRI/antidessant as needed. Consider adding other mood stabilizing agent as needed, such as lamotrigine. 06/14/2024 Major depression (ICD-10 - F32.9) Pt reports that she is doing well on medications at this time and reports that she is not wanting to make any med changes at this time. Pt denies SI/HI. Encouraged pt to schedule therapy appt. Pt reports that her moods are much improved since last visit. WIll order labs at next visit 06/14/2024 PTSD (post-traumatic stress disorder) (ICD-10 - F43.10) Pt reports that she is tolerating medication well. Denies side effects. reports that she is having issues sleeping due to chronic toe pain. 12/25/2024 Major depression (ICD-10 - F32.9) See assessment and plan for bipolar II disorder 11/01/2024 Major depression (ICD-10 - F32.9) See assessment and plan for bipolar II disorder 10/02/2024 Major depression (ICD-10 - F32.9) See assessment and plan for bipolar II disorder 09/05/2024 PTSD (post-traumatic stress disorder) (ICD-10 - F43.10) See assessment and plan for bipolar II disorder 04/25/2024 Major depression (ICD-10 - F32.9) Pt reports that she is doing well on medications at this time and reports that she is not wanting to make any med changes at this time. Pt denies SI/HI. Encouraged pt to schedule therapy appt. Pt reports that her moods are much improved since last visit 03/29/2024 PTSD (post-traumatic stress disorder) (ICD-10 - F43.10) Pt reports that she is tolerating medication well. Denies side effects. reports that she is having issues sleeping due to stress 03/23/2024 Major depression (ICD-10 - F32.9) 03/23/2024 Bipolar II disorder (ICD-10 - F31.81) history of hypomanic symptoms lasting few days with sleep changes, irritability, increased energy/goal oriented behaviors as well as low depressive episodes. 03/29/2024 Bipolar II disorder (ICD-10 - F31.81) history of hypomanic symptoms lasting few days with sleep changes, irritability, increased energy/goal oriented behaviors as well as low depressive episodes. Pt reports that her moods are overall under control at this time. Denies SI/HI at this time. Denies hallucinations or paranoia. Repots that she is tolerating med well at this time 04/25/2024 PTSD (post-traumatic stress disorder) (ICD-10 - F43.10) Pt reports that she is tolerating medication well. Denies side effects. reports that she is having issues sleeping due to chronic toe pain; is scheduled to see foundry molder in a few weeks 06/14/2024 Bipolar II disorder (ICD-10 - F31.81) history of hypomanic symptoms lasting few days with sleep changes, irritability, increased energy/goal oriented behaviors as well as low depressive episodes. Pt reports that her moods are overall under control at this time. Denies SI/HI at this time. Denies hallucinations or paranoia. Repots that she is tolerating med well at this time. Pt denies labs at this time. Will readdress at next visit 09/05/2024 Difficulty sleeping (ICD-10 - G47.9) See assessment and plan for bipolar II disorder 10/02/2024 PTSD (post-traumatic stress disorder) (ICD-10 - F43.10) See assessment and plan for bipolar II disorder 11/01/2024 PTSD (post-traumatic stress disorder) (ICD-10 - F43.10) See assessment and plan for bipolar II disorder 12/25/2024 PTSD (post-traumatic stress disorder) (ICD-10 - F43.10) See assessment and plan for bipolar II disorder 12/25/2024 Difficulty sleeping (ICD-10 - G47.9) See assessment and plan for bipolar II disorder 11/01/2024 Difficulty sleeping (ICD-10 - G47.9) See assessment and plan for bipolar II disorder 10/02/2024 Difficulty sleeping (ICD-10 - G47.9) See assessment and plan for bipolar II disorder 09/05/2024 Nutritional counseling (ICD-10 - Z71.3) 04/25/2024 Bipolar II disorder (ICD-10 - F31.81) history of hypomanic symptoms lasting few days with sleep changes, irritability, increased energy/goal oriented behaviors as well as low depressive episodes. Pt reports that her moods are overall under control at this time. Denies SI/HI at this time. Denies hallucinations or paranoia. Repots that she is tolerating med well at this time. Pt denies labs at this time. Will readdress at next visit 06/14/2024 Nutritional counseling (ICD-10 - Z71.3) 10/02/2024 Nutritional counseling (ICD-10 - Z71.3) 11/01/2024 Nutritional counseling (ICD-10 - Z71.3) 12/25/2024 Nutritional counseling (ICD-10 - Z71.3) 03/29/2024 Other Discussed treat ment planDiscussed sleep hygiene and caffeine intakeReturn to clinic 4 weeksEncouraged counselingDiscussed treatment plan; patient is agreeable and accepting of treatment plan. Patient denies further questions or concerns at this time. The Patient/Guardian asked appropriate questions, appeared to understand the answers, and decided to accept the treatment and continue being followed.The Patient/Guardian is aware of the need to contact the office or return for an earlier appointment if any problems or concerns arise. May also contact the 24-hour crisis hotline ([facility]), refer to the closest emergency room or call 911 if new symptoms arise of existing symptoms worsen; the Patient/Guardian is aware that this would apply to symptoms such as: suicidal ideation, homicidal ideation, high risk behaviors, manic symptoms, psychotic symptoms, physical symptoms, or any other symptoms that may be dangerous to self or others. 04/25/2024 Other Discussed treat ment planDiscussed sleep hygiene and caffeine intakeReturn to clinic 4 weeksEncouraged counselingDiscussed treatment plan; patient is agreeable and accepting of treatment plan. Patient denies further questions or concerns at this time. The Patient/Guardian asked appropriate questions, appeared to understand the answers, and decided to accept the treatment and continue being followed.The Patient/Guardian is aware of the need to contact the office or return for an earlier appointment if any problems or concerns arise. May also contact the 24-hour crisis hotline ([facility]), refer to the closest emergency room or call 911 if new symptoms arise of existing symptoms worsen; the Patient/Guardian is aware that this would apply to symptoms such as: suicidal ideation, homicidal ideation, high risk behaviors, manic symptoms, psychotic symptoms, physical symptoms, or any other symptoms that may be dangerous to self or others. 06/14/2024 Other Discussed treat ment planDiscussed sleep hygiene and caffeine intakeReturn to clinic 4 weeksEncouraged counselingDiscussed treatment plan; patient is agreeable and accepting of treatment plan. Patient denies further questions or concerns at this time. The Patient/Guardian asked appropriate questions, appeared to understand the answers, and decided to accept the treatment and continue being followed.The Patient/Guardian is aware of the need to contact the office or return for an earlier appointment if any problems or concerns arise. May also contact the 24-hour crisis hotline ([facility]), refer to the closest emergency room or call 911 if new symptoms arise of existing symptoms worsen; the Patient/Guardian is aware that this would apply to symptoms such as: suicidal ideation, homicidal ideation, high risk behaviors, manic symptoms, psychotic symptoms, physical symptoms, or any other symptoms that may be dangerous to self or others. 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 foot surgery 2023 Hospitalization History Reason Date(Month/Year) 2 day stay for COVID-19 06/2020 Chest pains- [facility] 2019
== END 2025-03-23 09:16 | disposition home or self-care (01) ==
PROVIDERS: PCP Internal Medicine; Visit Provider Internal Medicine
DX: Z12.2 Encounter for screening for malignant neoplasm of respiratory organs (principal); Z87.891 Personal history of nicotine dependence
CPT/HCPCS: 71271

== ENCOUNTER 2025-04-08 09:37 | Outpatient (CLI) | payer MEDICARE, SELFPAY ==
--- NOTE | ~2025-04-08 | XR_ITS ---
3 VIEWS LUMBAR SPINE Ordering provider: Lebron Beauchamp, History: . LBP . Comparison: None. FINDINGS: VERTEBRAL BODIES:Anterolisthesis at the level of L4-L5. Minimal loss of height is seen in L3 involvin g the superior endplate. This may be acute or chronic. MRI evaluation advised. Otherwise, No visible fracture or subluxation. DISK SPACES: Narrowing of the disc L4-L5 and L5-S1. Multilevel facet joint disease. SOFT TISSUES: Atherosclerotic changes of the aorta. Possible left kidney stones or vascular calcifica tion. IMPRESSION: Slight loss of height of L3 with sclerotic changes in the superior endplate. MRI evaluation advised. Anterolisthesis at the level of L4-L5. Degenerative disc disease at the level of L4-L5 and L5-S1. Multilevel facet joint disease. Reviewed, dictated and finalized at location A. IMPRESSION: Slight loss of height of L3 with sclerotic changes in the superior endplate. MR I evaluation advised. Anterolisthesis at the level of L4-L5. Degenerative disc disease at the level of L4-L5 and L5-S1. Multilevel facet farshad nt disease.
--- OUTSIDE RECORDS SUMMARY | 2025-04-08 10:14 | XMS_ITS | Clinical Summary ---
Author Organization [facility] [employer] Address [address] [place] [address] Care Team Providers Care Assistant Construction Superintendent Name Role Phone Lebron Beauchamp MD Primary Care Provider [phone] Source Comments [facility] [employer] [facility],non-owned Affiliates and Associated Physician Practices is amultiple site organization consisting of ambulatory clinics and hospital sitesin [place], [place] and [place]. This disclosure is being madepursuant to the Care Everywhere program and may not contain all information available regarding this patient. Last updated 18.[facility] [employer] Allergies No known active allergies Medications * [...] days. Indications: Inadequate Vitamin B12 Active B Dklwkoa-O-Osmce Acid (VITAMIN B COMPLEX WITH C) TABS [...] hours as needed for Pain. 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
--- OUTSIDE RECORDS SUMMARY | 2025-04-08 10:14 | XMS_ITS | Patient Health Record ---
Author Organization [facility] Address [address] [place] [address] Care Team Providers Care Clinical Documentation Clerk Name Role Phone Neil Rivera Primary Care Provider [phone] Charlee Osborn Unavailable [phone] Brisa Sow Unavailable [phone] Christopher Rob Unavailable [phone] Allergies No Known Allergies Reason For Referral [...] Status Risk Notes Problem Bipolar II disorder (F31.81) 08/03/20 Active confirmed history of hypomanic symptoms lasting few days with sleep changes, irritability , increased energy/goal oriented behaviors as well as low depressive episodes. Problem 231489640 Major depression (F32.9) 04/30/20 16 Active confirmed Problem Posttraumatic stress disorder (40737637) PTSD (post-traumat ic stress disorder) (F43.10) Active confirmed Problem Acute stress disorder (33726130) Acute stress disorder (F43.9) Active confirmed Problem Difficulty sleeping (G47.9) Active confirmed Problem Stress (52054274) Stress (F43.9) Active confirmed Vital Signs Heart Rate 97 /min 04/25/2024 Respiratory Rate 16 /min 04/25/2024 Oximetry 98 % 04/25/2024 Blood pressure diastolic 68 mm Hg 04/25/2024 Height 63.5 in 12/25/2024 Blood pressure systolic 122 mm Hg 04/25/2024 Weight 158 lbs 12/25/2024 BMI 27.55 kg/m2 12/25/2024 Encounters Encounter Location Date Provider Diagnosis [address] [address] 04/25/2024 Brisa Sow Nutritional counseling Z71.3 ; Major depression F32.9 ; PTSD (post-traumatic stress disorder) F43.10 and Bipolar II disorder F31.[address] [address] 06/14/2024 Brisa Sow Major depression F32.9 ; PTSD (post-traumatic stress disorder) F43.10 ; Bipolar II disorder F31.81 and Nutritional counseling Z71.[address] [address] 09/05/2024 Christopher Rob Bipolar II disorder F31.81 ; Major depression F32.9 ; PTSD (post-traumatic stress disorder) F43.10 ; Difficulty sleeping G47.9 and Nutritional counseling Z71.[address] [address] 10/02/2024 Christopher Rob Bipolar II disorder F31.81 ; Major depression F32.9 ; PTSD (post-traumatic stress disorder) F43.10 ; Difficulty sleeping G47.9 and Nutritional counseling Z71.[address] [address] 11/01/2024 Christopher Rob Bipolar II disorder F31.81 ; Major depression F32.9 ; PTSD (post-traumatic stress disorder) F43.10 ; Difficulty sleeping G47.9 and Nutritional counseling Z71.[address] [address] 12/25/2024 Christopher Rob Bipolar II disorder F31.81 ; Major depression F32.9 ; PTSD (post-traumatic stress disorder) F43.10 ; Difficulty sleeping G47.9 and Nutritional counseling Z71.[address] [address] 09/05/2024 Christopher Rob Assessments Encounter Date Diagnosis (ICD Code) Assessment Notes Treatment Notes Treatment Clinical Notes Section Notes 04/25/2024 Nutritional counseling (ICD-10 - Z71.3) 09/05/2024 [...] to the emergency department, or contact the [facility] Crisis Unit/Team. Follow up as scheduled in [...] to the emergency department, or contact the [facility] Crisis Unit/Team. Follow up as scheduled in [...] to the emergency department, or contact the [facility] Crisis Unit/Team. Follow up as scheduled in [...] to the emergency department, or contact the [facility] Crisis Unit/Team. Follow up as scheduled in [...] moods are much improved since last visit 04/25/2024 PTSD (post-traumatic stress disorder) (ICD-10 - F43.10) Pt reports that she is tolerating medication well. Denies side effects. reports that she is having issues sleeping due to chronic toe pain; is scheduled to see cigar packer and grader in a few weeks 06/14/2024 Bipolar II [...] Z71.3) 12/25/2024 Nutritional counseling (ICD-10 - Z71.3) 04/25/2024 Other Discussed treat ment planDiscussed sleep [...] May also contact the 24-hour crisis hotline ([facility]), refer to the closest emergency [...] May also contact the 24-hour crisis hotline ([facility]), refer to the closest emergency [...] End Date UHC Medicare Assure [address] [address] [place] [address] [id number] Oksana Vaughn Self - patient is the insured 2 2 [employer]HC 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
--- OUTSIDE RECORDS SUMMARY | 2025-04-08 10:15 | XMS_ITS | Data Portability ---
Author Organization [facility] Address [address] [place] [address] Assessment No assessment recorded. Plan of Treatment Reminders Order Date Submit Date Provider Last Modified By Organization Details Last Modified Time Details Appointments None recorded . Lab None recorded . Referral None recorded . Procedures None recorded . Surgeries None recorded . Imaging XR, hand, 3 or more view [facility], [address] , [address], [place], [address], 8 10:37:22 XR, wrist, 3 or more view [facility], [address] , [address], [place], [address], 8 10:37:22 Medication Orders [place] 5 mg-325 mg tablet INTERFACE [id number], [address], [place], [address], 8 15:33:59 Patient TargetsNo targets recorded. Patient Instructions Encounter Date Encounter Id Patient Instructions Last Modified By Organization Details Last Modified Time 07/29/2018 arm pain: care instructions Not available 07/29/2018 15:31:57 broken wrist: care instructions Not available 07/29/2018 15:31:57 application of splint, short arm* [email or web address] Not available 08/07/2018 10:19:02 She has an orthopedic she will see. Rest ice elevate Not available 07/29/2018 15:46:16 Reason for Referral None Reported. Results Created Date Observation Date Name Description Value Unit Range Abnormal Flag Note LastModifiedBy Organization Detail LastModifiedTime 07/31/20 18 07/29/2018 XR, wrist , 3 or more view No observ ation record ed. [email or web address] Not Available 07/31 11:21:14 07/31/20 18 07/29/2018 XR, hand, 3 or more view No observ ation record ed. [email or web address] Not Available 07/31 11:21:14 Result Notes None recorded. Problems Name Problem SNOMED Code Status Onset Date Resolution Date Notes Provider Name and Address Organization Details Recorded Time Depressive disorder 12865129 Active [facility] 8 14:17:03 Diabetes mellitus 23837110 Active [facility] Professional 8 14:17:08 Malignant tumor of breast 390149534 Active [facility] Professional 8 14:17:34 Problem Notes None recorded. Procedures Surgical History Date Name Laterality Status Provider Name and Address Organization Details Recorded Time Hernia Repair completed [facility]en [facility] Professional 07/29/2018 14:18:11 Hysterectomy completed [facility] Professional 07/29/2018 14:18:20 Bilateral Mastectomy completed [facility] Professional 07/29/2018 17:05:10 Imaging Results None recorded. Procedure Notes None recorded. Medical Equipment None Reported. Allergies No known drug allergies Medications Name Sig Start Date Stop Date Status Note LastModified by Organization Details LastModified Time [place] 5 mg-325 mg tablet Take 1 tablet every 6 hours by oral route as needed for 7 days. active Not Available Not Available Not Avai lable metformin active Not Available Not Jessica ilable Not Available Vitals Date Recorded Respiratory rate Body temperature Body weight Heart rate Body height Body mass index (BMI) Oxygen saturation Oxygen saturation in Arterial blood by Pulse oximetry Systolic blood pressure Diastolic blood pressure Provider Name and Address Organization Details Last Updated DateTime 8 18 /min 97 [degF] 011099. 44 g 102 /min 162.56 cm 287 kg/m2 97 % 97 % 106 mm[Hg] 62 mm[Hg] [facility] Medical Professional 8 14:36:28 Social History Question Answer Notes LastModified by Organizat ion Details LastModified Time Tobacco Smoking Status Former Smoker Felipe Isidoro quiroga [facility] Professional 07/29/2018 14:17:52 Which Illicit Or Recreational Drugs Have You Used? Never Information not available 07/29/2018 Live Alone Or With Others? Alone Information not available 07/29/2018 What Was The Date Of Your Most Recent Tobacco Screening? 07/29/2018 Information not available 05/16/2019 How Many Years Have You Smoked Tobacco? 35 Information not available 07/29/2018 Sex: Unknown Functional Status Question Answer Note LastModified by Organization D etails LastModified Time What is your level of alcohol consumption? None Information not available 07/29/2018 Mental Status None recorded. Family History Relationship Description Onset Age of this Age Resolved Age Notes LastModified by Organization Details LastModified Time Father No current problems or disability [email or web address] Not available 03/2018 17:04:40 Mother No current problems or disability [email or web address] Not available 03/2018 17:04:40 Medical History Condition Response Coronary Artery Disease N Other N Gout N Kidney Stones N Blood Diseases N Hyperthyroidism N Breast Cancer Y Blood Transfusion N Hypothyroidism N Depression Y COPD N Lung Disease N Defects or Inherited Disease N Developmental or Behavioral Disorders N Breast Problem Y Difficulty Swallowing N Anesthesia Complications N Meniere's disease N Anxiety Disorder N Muscle, Joint, or Bone Problems N Obesity N Vision or Eye Problems N Arthritis N Polyps N Infertility N Mental Disorder N Cancer N Varicosities N Stroke N Endometriosis N Bladder or Kidney Problems N High Cholesterol N Liver Disease N Headaches N Fibromyalgia N Kidney Disease N Allergies/Hayfever N Heart Problems N Ear or Hearing Problems N Hospitalizations N Thyroid Problems N GI Problems N ADD/ADHD N Skin Problems N Eating Disorder N Anemia N MRSA exposure N Constipation N Mental Illness N Ovarian Cancer N Diabetes Y Bedwetting N Seizures/Epilepsy N Tuberculosis N AIDS/HIV N Congestive Heart Failure (CHF) N Eczema N Diverticulitis N Abuse/Domestic Violence N Asthma N Reflux/GERD N Hepatitis N Heart Disease N Pulmonary Embolism N Chronic Ear Infections N Pre-Eclampsia N Hypertension N Chicken Pox N Autism Spectrum Disorder (ASD) N Osteoporosis N Thrombophilias N Gynecological HistoryNo gynecological history recorded. Obstetrics History GPAL:G 0 P 0 0 0 0 Past Encounters Encounter ID Performer Location Encounter Start Date Encounter Closed Date Diagnosis/Indication Diagnosis SNOMED-CT Code Diagnosis ICD10 Code Diagnosis Note [id number] Willie Chaudhry [facility] [address], [address] [place] [address] 07/29/2018 13:46:41 10/20/2018 21:24:30 Pain in upper limb 556990790 M79.601 Fracture o f distal end of radius 643918800 S52.501A Health Concerns Section Related Observation LastModified by Organization Detai ls LastModified Time None Recorded Concern Status LastModified by Organization Details LastModified Time None Recorded Advance Directives Directive None Recorded Payers Insurance Date Sequence Insurance Name Policy Number Policy Cosme Covered Member ID Cosme Member ID Guarantor Name 10/20/2018 1 [facility] (MEDICARE REPLACEMENT/A DVANTAGE - HMO) [id number] Oksana Vaughn [id number] Oksana Vaughn Notes Date Note Type Note Provider Name and Address Organization Details Recorded Time 07/29/2018 text/html pt presenst to urgent [facility] with complaint of rt hand and wrist pain. pt was unloading a uhal and tripped, falling into a box on her rt arm. pt has had severe pain since the fall. pts wrist has noted swelling. Willie Chaudhry [address], [place], [address], [facility] Medical Professional 10/20/2018 21:24:28 OBGyn Episode No OBEpisode recorded.
--- OUTSIDE RECORDS SUMMARY | 2025-04-08 10:15 | XMS_ITS ---
Author Organization [facility] Address [address] [place] [address] Care Team Providers Care Marketing Planning Manager Name Role Phone Mae Diamond MD PhD Unavailable [phone] Lebron Beauchamp MD Primary Care Provider Bren Owens NP Unavailable [phone] Isabela Zacarias MD Unavailable [phone] Active Problems Problem Noted Date Diagnosed Date [...]
--- OUTSIDE RECORDS SUMMARY | 2025-04-08 10:15 | XMS_ITS | Encounter Summary ---
Author Organization [facility] Address [address] [place] [address] Care Team Providers Care Liquor Runner Name Role Phone Mae Diamond MD PhD Unavailable Lebron Beauchamp MD Primary Care Provider Bren Owens NP Unavailable [phone] Isabela Zacarias MD Unavailable [phone] Encounter Details Date Type Department Care Team (Late st Contact Info) Description 06/06/2019 Telephone [facility] Advanced Medicine Radiation Oncology [address] [facility] [place] [address] Peggy Mora CMA Social History Tobacco Use Types Packs/Day Years Used Date Smoking Tobacco: Former Smokeless Tobacco: Never Alcohol Use Standard Drinks/Week Comments No 0 (1 standard drink = 0.6 oz pur e alcohol) Comments No Sex and Gender Information Value Date Recorded Sex Assigned at Not on file 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 Gender Identity Female 07/03/2021 7:11 AM CDT Sexual Orientation Straight 07/03/2021 7: 11 AM CDT documented as of this encounter Plan of Treatment Not on file documented as of this encounter Visit Diagnoses Not on filedocumented in this encounter Care Teams Liquor Runner Relationship Specialty Start Date End Date Lebron Beauchamp MD [address] [facility] [place] [address] PCP - General Internal Medicine 12/29/18 Ma, Mae Goins MD PhD 01/03/18 Bren Owens NP [address] [address] Nurse Practitioner Medical Oncology 07/20/22 Isabela Zacarias MD [address] [place] [address] Referring Physician Neurology 03/01/23 documented as of this encounter
--- OUTSIDE RECORDS SUMMARY | 2025-04-08 10:15 | XMS_ITS | Clinical Summary ---
Author Organization [facility] Healthcare Address [address] [place] [address] Care Team Providers Care Health Care Analyst Name Role Phone Mae Diamond MD PhD Unavailable Lebron Beauchamp MD Primary Care Provider Bren Owens NP Unavailable [phone] Isabela Zacarias MD Unavailable [phone] Allergies No known active allergies Medications cyanocobalamin [...] Next Due Influenza, Trivalent, IM (MDV) 08/27/2014 Surgical History Surgery Date Site/Laterality Comments CATARACT EXTRACTION W/ INTRAOCULAR LENS IMPLANT 10/24/2020 - 10/23/2021 Bilateral PANNICULECTOMY 10/24/1989 - 10/23/1990 HYSTERECTOMY 10/24/1997 - 10/23/1998 radical total GASTRIC BYPASS 10/24/2008 - 10/23/2009 HEMORRHOID SURGERY 10/24/1999 - 10/23/2000 LITHOTRIPSY 10/24/1999 - 10/23/2000 MASTECTOMY 10/24/2011 - 10/23/2012 Bilateral Bilateral Mastectomy 2012 w/ LND Left REDUCTION MAMMAPLASTY 10/24/2005 - [...] on file Legal Sex Female 1:15 AM MANAGER SOLAR Gender Identity Female 07/03/2021 7:11 AM CDT [...] Comments Blood Pressure 124/78 11/04/2023 10:35 AM MANAGER SOLAR Pulse 83 09/20/2023 8:48 AM MANAGER SOLAR Temperature 36.3 C (97.3 F) 09/20/2023 8:48 AM MANAGER SOLAR Respiratory Rate 18 09/20/2023 8:48 AM MANAGER SOLAR Oxygen Saturation 98% 09/20/2023 8:48 AM MANAGER SOLAR Inhaled Oxygen Concentration - - Weight 78.2 kg (172 lb 6.4 oz) 11/04/2023 10:35 AM MANAGER SOLAR Height 160 cm (5' 3) 11/04/2023 10:35 AM MANAGER SOLAR Body Mass Index 30.54 11/04/2023 10:35 AM MANAGER SOLAR Plan of Treatment Health Maintenance Due Date [...] history exists Medical Devices Implanted Type Area Optical Mechanic Apprentice Device Identifier Shelf Expiration Date Model / Serial / Lot Implant Fixation L6 Mm Od3.4 Mm Odsec3 Mm Toe 2 Step Hammer - [id number] Implanted:Qty : 2 on 01/06/2018 by Lebron Flaherty DPM at [facility] Screw Left: Metatarsal [employer] -30-00 6 / / Description:6mm implant in b oth third and fourth digits Implant Fixation L8 Mm Od3.4 Mm Odsec3 Mm Toe 2 Step Hammer - [id number] Implanted:Qty : 1 on 01/06/2018 by Lebron Flaherty DPM at [facility] Screw Left: Metatarsal E[employer] [id number] 8 / / Description:8mm implant in s econd digit Wire Fixation Sandie Standard L6 In Od.45 In - [id number] Implanted:Qty : 3 on 01/06/2018 by Lebron Flaherty DPM at [facility] Wire Left: Metatarsal Eneedo [address]40 4 / / Description:2nd, 3rd, 4th to e Procedures Procedure Name Priority Date/Time Associated Diagnosis Comments DEXA AXIAL SKELETON BONE DENSITY 1 OR MORE SITES Schedule Routine, Read Routine (OP Routine) 11/04/2023 10:22 AM MANAGER SOLAR Malignant neoplasm of left breast in female, estrogen receptor positive, unspecified site of breast (HCC) Use of aromatase inhibitors from Last 3 Months or Most Recently Relevant to Health Maintenance Results * Dexa Axial Skeleton Bone Density 1 or 2 Site (11/04/2023 10:22 AM MANAGER SOLAR) Anatomical Region Laterality Modality Body N/A Mammography 11/04/2023 10:4 5 AM MANAGER SOLAR Narrative 11/04/2023 10:46 AM MANAGER SOLAR EXAM DESCRIPTION: DEXA AXIAL SKELETON BONE DENSITY 1 OR MORE SITES REASON FOR STUDY: 73 y/o year old F with given history of: On aromatase inhibitor therapy for breast carcinoma. Patient takes vitamin-D. History of prior fracture Optical Mechanic Apprentice/Model: [employer] A (S/N [id number]) CLINICAL INFORMATION: Current height: 63 inches Maximum [...] Pari Ayon M.D. TW: TW Report ID: [id number] Reading Location: [id number] Procedure Note Pari Ayno MD - 11/04/2023 EXAM DESCRIPTION: DEXA AXIAL SKELETON BONE DENSITY 1 OR MORE SITES REASON FOR STUDY: 73 y/o year old F with given history of: Onaromatase inhibitor therapy for breast carcinoma. Patient takes vitamin-D. 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 TW: TW Report ID: [id number] Reading Location: [place] [address] Result [facility] Bren Owens NP IMG DXA PROCEDURES Lety l Result from Last 3 Months or Most Recently Relevant to Health Maintenance Insurance [facility]CR HMO REF MEDICARE ADVANTAGE MEDICARE ADVANTAGE Advance Directives For more information, please contact: [phone] * Full Code (Latest Code Status on File) Date Activated Date Inactivated Comments 01/06/2018 10:50 AM 01/06/2018 1:53 PM Care Teams Health Care Analyst Relationship Specialty Start Date End Date Lebron Beauchamp MD [address] [facility] [address] [place] [address] PCP - General Internal Medicine 12/29/18 Dara, Mae Goins MD PhD 01/03/18 Bren Owens NP [address] [place] [address] Nurse Practitioner Medical Oncology 07/20/22 Isabela Zacarias MD [address] [place] [address] Referring Physician Neurology 03/01/23
--- OUTSIDE RECORDS SUMMARY | 2025-04-08 10:15 | XMS_ITS | Referral Summary ---
Author Organization [facility] Healthcare Address [address] [place] [address] Care Team Providers Care Wood Cabinet Finisher Name Role Phone Mae Diamond MD PhD Unavailable [phone] Lebron Beauchamp MD Primary Care Provider Bren Owens NP Unavailable [phone] Isabela Zacarias MD Unavailable [phone] Allergies No known active allergies Medications cyanocobalamin [...] on file Legal Sex Female 1:15 AM PLANNING ENGINEER Gender Identity Female 07/03/2021 7:11 AM CDT Sexual Orientation Straight 07/03/2021 7: 11 AM CDT Last Filed Vital Signs Vital Sign Reading Time Taken Comments Blood Pressure 124/78 11/04/2023 10:35 AM PLANNING ENGINEER Pulse 83 09/20/2023 8:48 AM PLANNING ENGINEER Temperature 36.3 C (97.3 F) 09/20/2023 8:48 AM PLANNING ENGINEER Respiratory Rate 18 09/20/2023 8:48 AM PLANNING ENGINEER Oxygen Saturation 98% 09/20/2023 8:48 AM PLANNING ENGINEER Inhaled Oxygen Concentration - - Weight 78.2 kg (172 lb 6.4 oz) 11/04/2023 10:35 AM PLANNING ENGINEER Height 160 cm (5' 3) 11/04/2023 10:35 AM PLANNING ENGINEER Body Mass Index 30.54 11/04/2023 10:35 AM PLANNING ENGINEER Plan of Treatment Not on file Medical Devices Implanted Type Area Nail Professional Device Identifier Shelf Expiration Date Model / Serial / Lot Implant Fixation L6 Mm Od3.4 Mm Odsec3 Mm Toe 2 Step Hammer - [id number] Implanted:Qty : 2 on 01/06/2018 by Lebron Flaherty DPM at [facility] Screw Left: Metatarsal [employer] 204-30-00 / Description:6mm implant in b oth third and fourth digits Implant Fixation L8 Mm Od3.4 Mm Odsec3 Mm Toe 2 Step Hammer - [id number] Implanted:Qty : 1 on 01/06/2018 by Lebron Flaherty DPM at [facility] Screw Left: Metatarsal [employer] 30 8 / / Description:8mm implant in s econd digit Wire Fixation Sandie Standard L6 In Od.45 In - [id number] Implanted:Qty : 3 on 01/06/2018 by Lebron Flaherty DPM at [facility] Wire Left: Metatarsal [employer] 4 / / Description:2nd, 3rd, 4th to e Procedures Procedure Name Priority Date/Time Associated Diagnosis Comments DEXA AXIAL SKELETON BONE DENSITY 1 OR MORE SITES Schedule Routine, Read Routine (OP Routine) 11/04/2023 10:22 AM PLANNING ENGINEER Malignant neoplasm of left breast in female, estrogen receptor positive, unspecified site of breast (HCC) Use of aromatase inhibitors from Last 3 Months or Most Recently Relevant to Health Maintenance Results * Dexa Axial Skeleton Bone Density 1 or 2 Site (11/04/2023 10:22 AM PLANNING ENGINEER) Anatomical Region Laterality Modality Body N/A Mammography 11/04/2023 10:4 5 AM PLANNING ENGINEER Narrative 11/04/2023 10:46 AM PLANNING ENGINEER EXAM DESCRIPTION: DEXA AXIAL SKELETON BONE DENSITY 1 OR MORE SITES REASON FOR STUDY: 73 y/o year old F with given history of: On aromatase inhibitor therapy for breast carcinoma. Patient takes vitamin-D. 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 TW: TW Report ID: [id number] Reading Location: [id number] Procedure Note Pari Ayon MD - 11/04/2023 EXAM DESCRIPTION: DEXA AXIAL SKELETON BONE DENSITY 1 OR MORE SITES REASON FOR STUDY: 73 y/o year old F with given history of: Onaromatase inhibitor therapy for breast carcinoma. Patient takes vitamin-D. Historyof prior fracture Nail Professional/Model: H[employer] A (S/N [id number]) CLINICAL INFORMATION: Current height: 63 inches Maximum [...] Pari Ayon M.D. TW: LELAND Report ID: [id number] Reading Location: [place] [address] Bren Owens NP IMG DXA PROCEDURES Lety l Result from Last 3 Months or Most Recently Relevant to Health Maintenance [facility] MEDICARE Address: [address] [address] [place] [address] MEDICARE ADVANTAGE [facility] MEDICARE Address: [address] [address] [place] [address] MEDICARE ADVANTAGE [facility] MEDIC[facility] Address: [address] [address] [place] [address] Advance Directives For more information, please contact: [phone] * Full Code (Latest Code Status on File) Date Activated Date Inactivated Comments 01/06/2018 10:50 AM 01/06/2018 1:53 PM Care Teams Wood Cabinet Finisher Relationship Specialty Start Date End Date Lebron Beauchamp MD [address] [facility] [address] [place] [address] PCP - General Internal Medicine 12/29/18 Mae Diamond MD PhD 01/03/18 Bren Owens NP [address] [address] Nurse Practitioner Medical Oncology 07/20/22 Isabela Zacarias MD [address] [address] Referring Physician Neurology 03/01/23
--- OUTSIDE RECORDS SUMMARY | 2025-04-08 10:15 | XMS_ITS | Clinical Summary ---
Author Organization [facility] Address [address] [place] [address] Phone Care Team Providers Care E Commerce Merchant Name Role Phone Chantale Delarosa MD Primary Care Provider [phone] Allergies No known active allergies Medications P-EPHED [...] Beauchamp MD Referring Provider: Jayme Saavedra [address] [facility] [address] [place] [address] Other: Problem Noted Date Diagnosed Date Diffuse [...] on file Legal Sex Female 5:50 AM POULTRY CUTTER Gender Identity Not on file Sexual Orientation Not on file Last Filed Vital Signs Vital Sign Reading Time Taken Comments Blood Pressure 147/97 11/28/2009 1:49 PM POULTRY CUTTER Pulse - - Temperature - - Respiratory Rate - - Oxygen Saturation - - Inhaled Oxygen Concentration - - Weight 86.6 kg (191 lb) 11/28/2009 1:49 PM POULTRY CUTTER Height 162.6 cm (5' 4) 11/28/2009 1:49 PM POULTRY CUTTER Body Mass Index 32.79 11/28/2009 1:49 PM POULTRY CUTTER Plan of Treatment Health Maintenance Due Date [...] Most Recently Relevant to Health Maintenance Insurance [employer] OPEN [employer] Care Teams E Commerce Merchant Relationship Specialty Start Date End Date Chantale Delarosa MD [address] [place] [address] PCP - General Internal Medicine 10/05/21
== END 2025-04-08 09:38 | disposition home or self-care (01) ==
PROVIDERS: PCP Internal Medicine; Visit Provider Internal Medicine
DX: M43.16 Spondylolisthesis, lumbar region (principal); M51.360 Other intervertebral disc degeneration, lumbar region with discogenic back pain only; M51.370 Other intervertebral disc degeneration, lumbosacral region with discogenic back pain only; M47.896 Other spondylosis, lumbar region; M47.897 Other spondylosis, lumbosacral region
CPT/HCPCS: 72110

== ENCOUNTER 2025-06-14 00:39 | Day surgery (SDC) | payer MEDICARE, SELFPAY ==
[2025-06-06 12:53] VITALS: BMI 28.5
--- OUTSIDE RECORDS SUMMARY | 2025-06-14 00:43 | XMS_ITS ---
Author Organization [facility] Address [address] [place] [address] Care Team Providers Care Electric Welder Helper Name Role Phone Mae Diamond MD PhD Unavailable Lebron Beauchamp MD Primary Care Provider Bren Owens NP Unavailable [phone] Isabela Zacarias MD Unavailable [phone] Active Problems Problem Noted Date Diagnosed Date [...]
--- OUTSIDE RECORDS SUMMARY | 2025-06-14 00:43 | XMS_ITS | Clinical Summary ---
Author Organization [facility] Address [address] [place] [address] Care Team Providers Care Anchor Tack Puller Name Role Phone Lebron Beauchamp MD Primary Care Provider [phone] Source Comments [facility],non-owned Affiliates and Associated Physician Practices is amultiple site organization consisting of ambulatory clinics and hospital sitesin [place], [place], [place] and [place]. This disclosure is being madepursuant to the Care Everywhere program and may not contain all information available regarding this patient. Last updated 18.[facility] Allergies No known active allergies Medications * [...] days. Indications: Inadequate Vitamin B12 Active B Psdhfbu-Q-Trrhe Acid (VITAMIN B COMPLEX WITH C) TABS [...] hours as needed for Pain. Activ e [place]-3 Fatty Acids (FISH OIL) 1000 MG CAPS [...] on file Legal Sex Female 1:34 PM COMPUTER ANALYST SUPERVISOR Gender Identity Not on file Sexual Orientation [...] 84.4 kg (186 lb) 10/02/2014 12:14 PM COMPUTER ANALYST SUPERVISOR Height 162.6 cm (5' 4) 10/02/2014 12:14 PM COMPUTER ANALYST SUPERVISOR Body Mass Index 31.93 10/02/2014 12:14 PM COMPUTER ANALYST SUPERVISOR Plan of Treatment Health Maintenance Due Date [...] season) 2024 DEPRESSION SCREENING 10/24/2024 INFLUENZA VACCINE (#1) 2025 Respiratory Syncytial Virus (RSV) Vaccine Pt: [...] 5:18 AM 03/24/2012 2:49 AM Care Teams Anchor Tack Puller Relationship Specialty Start Date End Date Lebron Beauchamp MD [address] [place] [address] [address] [place] [address] PCP - General 03/22/12
--- OUTSIDE RECORDS SUMMARY | 2025-06-14 00:43 | XMS_ITS | Encounter Summary ---
Author Organization [facility] Healthcare Address [address] [place] [address] Care Team Providers Care Shearer Screen Measurer And Trimmer Name Role Phone Mae Diamond MD PhD Unavailable Lebron Beauchamp MD Primary Care Provider Bren Owens NP Unavailable [phone] Isabela Zacarias MD Unavailable [phone] Encounter Details Date Type Department Care Team (Late st Contact Info) Description 06/06/[address] [facility] Advanced Medicine Radiation Oncology [address] [facility] [place] [address] Peggy Mora CMA Social History Tobacco Use Types Packs/Day Years Used Date Smoking Tobacco: Former Smokeless Tobacco: Never Alcohol Use Standard Drinks/Week Comments No 0 (1 standard drink = 0.6 oz pur e alcohol) Comments No Sex and Gender Information Value Date Recorded Sex Assigned at Not on file Legal Sex Female 1:15 AM SWITCHBOARD OPERATOR Gender Identity Female 07/03/2021 7:11 AM CDT Sexual Orientation Straight 07/03/2021 7: 11 AM CDT documented as of this encounter Plan of Treatment Not on file documented as of this encounter Visit Diagnoses Not on filedocumented in this encounter Care Teams Shearer Screen Measurer And Trimmer Relationship Specialty Start Date End Date Lebron Beauchamp MD [address] [facility] [place] [address] PCP - General Internal Medicine 12/29/18 Ma, Mae Goins MD PhD 01/03/18 Bren Owens NP [address] [address] Nurse Practitioner Medical Oncology 07/20/22 Isabela Zacarias MD [address] [place] [address] Referring Physician Neurology 03/01/23 documented as of this encounter
--- OUTSIDE RECORDS SUMMARY | 2025-06-14 00:43 | XMS_ITS | Clinical Summary ---
Author Organization [facility] Healthcare Address [address] [place] [address] Care Team Providers Care Food Counselor Name Role Phone Mae Diamond MD PhD Unavailable Lebron Beauchamp MD Primary Care Provider Bren Owens NP Unavailable [phone] sIabela Zacarias MD Unavailable [phone] Allergies No known active allergies Medications cyanocobalamin [...] (HCC) Bilateral Breast Type 2 diabetes mellitus Lymph edema Left arm Kidney stone Anemia [...] on file Legal Sex Female 1:15 AM BAKERY MANAGER Gender Identity Female 07/03/2021 7:11 AM CDT [...] Comments Blood Pressure 124/78 11/04/2023 10:35 AM BAKERY MANAGER Pulse 83 09/20/2023 8:48 AM BAKERY MANAGER Temperature 36.3 C (97.3 F) 09/20/2023 8:48 AM BAKERY MANAGER Respiratory Rate 18 09/20/2023 8:48 AM BAKERY MANAGER Oxygen Saturation 98% 09/20/2023 8:48 AM BAKERY MANAGER Inhaled Oxygen Concentration - - Weight 78.2 kg (172 lb 6.4 oz) 11/04/2023 10:35 AM BAKERY MANAGER Height 160 cm (5' 3) 11/04/2023 10:35 AM BAKERY MANAGER Body Mass Index 30.54 11/04/2023 10:35 AM BAKERY MANAGER Plan of Treatment Health Maintenance Due Date Last Done Comments Breast Cancer Screening-Mammogram 1951 Colon Cancer Screening-Colonoscopy 1950 Depression Screening 1951 Hepatitis C Screening 1951 DTaP/Tdap/Td Vaccine (1 - Tdap) 1962 Hepatitis B Screening 1969 Pneumococcal vaccine 65+ (1 of 2 - PCV) 1970 Zoster Vaccine (1 of 2) 1970 Well Visit 65+ 2016 Fall Risk Assessment 04/05/2024 04/05/2023 Influenza Vaccine (#1) 2025 08/27/2014 Osteoporosis Screening-Bone Density Scan 11/04/2025 11/04/2023, 07/23/2021, 07/16/2015, Additional history exists Medical Devices Implanted Type Area Printing Press Machine Operator Device Identifier Shelf Expiration Date Model / Serial / Lot Implant Fixation L6 Mm Od3.4 Mm Odsec3 Mm Toe 2 Step Hammer - [id number] Implanted:Qty : 2 on 01/06/2018 by Lebron Flaherty DPM at [facility] Screw Left: Metatarsal [employer] 204-30-00 6 / / Description:6mm implant in b oth third and fourth digits Implant Fixation L8 Mm Od3.4 Mm Odsec3 Mm Toe 2 Step Hammer - [id number] Implanted:Qty : 1 on 01/06/2018 by Lebron Flaherty DPM at [facility] Screw Left: Metatarsal [employer] 30 8 / / Description:8mm implant in s econd digit Wire Fixation Sandie Standard L6 In Od.45 In - [id number] Implanted:Qty : 3 on 01/06/2018 by Lebron Flaherty DPM at [facility] Wire Left: Metatarsal [employer] 210 4 / / Description:2nd, 3rd, 4th to e Procedures Procedure Name Priority Date/Time Associated Diagnosis Comments DEXA AXIAL SKELETON BONE DENSITY 1 OR MORE SITES Schedule Routine, Read Routine (OP Routine) 11/04/2023 10:22 AM BAKERY MANAGER Malignant neoplasm of left breast in female, estrogen receptor positive, unspecified site of breast (HCC) Use of aromatase inhibitors from Last 3 Months or Most Recently Relevant to Health Maintenance Results * Dexa Axial Skeleton Bone Density 1 or 2 Site (11/04/2023 10:22 AM BAKERY MANAGER) Anatomical Region Laterality Modality Body N/A Mammography 11/04/2023 10:4 5 AM BAKERY MANAGER Narrative 11/04/2023 10:46 AM BAKERY MANAGER EXAM DESCRIPTION: DEXA AXIAL SKELETON BONE DENSITY 1 OR MORE SITES REASON FOR STUDY: 73 y/o year old F with given history of: On aromatase inhibitor therapy for breast carcinoma. Patient takes vitamin-D. 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 TW: TW Report ID: [id number] Reading Location: [id number] Procedure Note Pari Ayon MD - 11/04/2023 EXAM DESCRIPTION: DEXA AXIAL SKELETON BONE DENSITY 1 OR MORE SITES REASON FOR STUDY: 73 y/o year old F with given history of: Onaromatase inhibitor therapy for breast carcinoma. Patient takes vitamin-D. Historyof prior fracture Printing Press Machine Operator/Model: H[employer] Horizon A (S/N [id number]) CLINICAL INFORMATION: Current height: 63 inches Maximum [...] Pari Ayon M.D. TW: LELAND Report ID: [id number] Reading Location: [place] [address] Bren Owens NP IMG DXA PROCEDURES Lety l Result from Last 3 Months or Most Recently Relevant to Health Maintenance [facility] MED[facility] Address: [address] [address] [place] [address] MEDICARE ADVANTAGE [facility] Address: [address] [place] [address] MEDICARE AD[facility]ANT[facility] MEDIC[facility] Address: [address] [address] [place] [address] Advance Directives For more information, please contact: [phone] * Full Code (Latest Code Status on File) Date Activated Date Inactivated Comments 01/06/2018 10:50 AM 01/06/2018 1:53 PM Care Teams Food Counselor Relationship Specialty Start Date End Date Lebron Beauchamp MD [address] [facility] [address] [place] [address] PCP - General Internal Medicine 12/29/18 Mae Diamond MD PhD 01/03/18 Bren Owens NP [address] [address] Nurse Practitioner Medical Oncology 07/20/22 Isabela Zacarias MD [address] [address] Referring Physician Neurology 03/01/23
--- OUTSIDE RECORDS SUMMARY | 2025-06-14 00:44 | XMS_ITS | Clinical Summary ---
Author Organization [facility] Address [address] [place] [address] Phone Care Team Providers Care Cardiac Catheterization Technologist Name Role Phone Chantale Delarosa MD Primary Care Provider [phone] Allergies No known active allergies Medications P-EPHED [...] Beauchamp MD Referring Provider: Jayme Saavedra [address] [facility] [address] [place] [address] Other: Problem Noted Date Diagnosed Date Diffuse [...] on file Legal Sex Female 5:50 AM BUSINESS TAXES SPECIALIST Gender Identity Not on file Sexual Orientation Not on file Last Filed Vital Signs Vital Sign Reading Time Taken Comments Blood Pressure 147/97 11/28/2009 1:49 PM BUSINESS TAXES SPECIALIST Pulse - - Temperature - - Respiratory Rate - - Oxygen Saturation - - Inhaled Oxygen Concentration - - Weight 86.6 kg (191 lb) 11/28/2009 1:49 PM BUSINESS TAXES SPECIALIST Height 162.6 cm (5' 4) 11/28/2009 1:49 PM BUSINESS TAXES SPECIALIST Body Mass Index 32.79 11/28/2009 1:49 PM BUSINESS TAXES SPECIALIST Plan of Treatment Health Maintenance Due Date [...] 04/23/2009, Additional history exists OSTEOPOROSIS SCREENING 2016 Preventative Visit- Commercial 10/24/2024 INFLUENZA VACCINE (#1) 2025 RSV VACCINE (60+ or ) (1 - [...] Most Recently Relevant to Health Maintenance Insurance [employer] Care Teams Cardiac Catheterization Technologist Relationship Specialty Start Date End Date Chantale Delarosa MD [address] [place] [address] PCP - General Internal Medicine 10/05/21
[2025-06-14 09:25] VITALS: BP 148/77; PULSE 90; RESP 16; TEMP 36.3; O2SAT 100; BMI 29.6
[2025-06-14] MEDS: LACTATED RINGERS 1,000 ML 150 ML IV CONT (09:43)
--- NOTE | 2025-06-14 10:05 | WPDANESEPPF ---
Anes - Initial Pre Proc Eval Procedure: Operation Date: 06/14/25 11:00 Proposed Procedures p Diagnostic Colonoscopy - Alvaro Ramirez MD Date/Time: 06/14/25 10:05 Surgeon: Alvaro Ramirez MD Pre Op Diagnosis: Other fecal abnormalities Patient Data Age: 75 Gender: F Height: 1.6 m Weight: 75.9 kg Last Vital Signs Temp 36.3 C L 06/14/25 09:25 Pulse 90 06/14/25 09:25 Resp 16 06/14/25 09:25 BP 148/77 H 06/14/25 09:25 Pulse Ox 100 06/14/25 09:25 O2 Del Method Room Air 06/14/25 09:25 Allergies Allergy/AdvReac Type Severity Reaction Status Date / Time No Known Allergies Allergy Mild Verified 06/14/25 09:31 Home Medications ?Medication ?Instructions ?Recorded ?Confirmed ?Type amlodipine 5 mg tablet 5 mg PO DAILY 01/25/22 06/14/25 History aspirin 81 mg capsule 81 mg PO DAILY 01/25/22 06/14/25 History duloxetine 30 mg capsule,delayed 30 mg PO DAILY 01/25/22 06/14/25 History release furosemide 20 mg tablet 10 mg PO QAM 01/25/22 06/14/25 History hydrocodone 7.5 mg-acetaminophen 1 tablet PO Q4-6H PRN Pain 01/25/22 06/06/25 History 300 mg tablet letrozole 2.5 mg tablet 2.5 mg PO DAILY 01/25/22 06/14/25 History metformin 500 mg tablet 500 mg PO BID 01/25/22 06/14/25 History omeprazole 20 mg capsule,delayed 20 mg PO DAILY 01/25/22 06/14/25 History release trazodone 100 mg tablet 100 mg PO QHS PRN Sleep 01/25/22 06/06/25 History atorvastatin 40 mg tablet 40 mg PO DAILY 10/07/23 06/14/25 History ferrous sulfate 325 mg (65 mg 325 mg PO DAILY 10/07/23 06/14/25 History iron) tablet (Feosol) semaglutide 1 mg/dose (4 mg/3 mL) 2 mg subcut WEEKLY 11/01/23 06/14/25 History subcutaneous pen injector (Ozempic) sodium,potassium,mag sulfates 17.5 See Rx Instructions PO .COMPLEX 06/06/25 Rx gram-3.13 gram-1.6 gram oral soln #354 mL (Suprep Bowel Prep Kit) Laboratory Tests 06/14/25 09:39 POC Capillary Glucose 116 H mg/dl (65-105) Patient hx anesthesia problems: none Family hx anesthesia problems: none Results Review: All pre-operative results and documents have been reviewed as part of the pre-operative evaluation. [facility] Past Medical History Medical History Abdominal pain HTN (hypertension) Ulcer IBS (irritable bowel syndrome) GERD (gastroesophageal reflux disease) Diabetes Breast cancer Allergies H/O malignant neoplasm of breast Surgical History Surgical History H/O total knee replacement H/O gastric bypass H/O hemorrhoidectomy H/O breast reconstruction H/O mastectomy H/O foot surgery H/O: hysterectomy Social History Social History Years smoked: 15 Smoking status: Former smoker Living arrangements: alone Occupation/Education: retired Gender identity (if verbalized by the patient): Female Anes - Eval Final PreProcedure Day of Procedure 06/14/25 10:05 Patient weight: overweight Heart: regular rate and rhythm Lungs: clear to auscultation Airway: Mallampati scale class II Neurological: alert and oriented Last oral intake: >/= 8 hours ASA classification: III Emergent: no Anesthetic plan: proceed Anesthesia type and monitoring: general GIVS and standard monitoring Results Review: All pre-operative results and documents have been reviewed as part of the pre-operative evaluation. Informed Consent: The patient's anesthetic plan and its attendant risks and benefits were discussed with the patient/family/POA. Questions were solicited and answers provided to the satisfaction of the patient/family/POA.
--- NOTE | 2025-06-14 10:19 | PM.IMHP ---
H&P: HPI History of Present Illness Date/Time: 06/14/25 10:19 Chief Complaint: screening colonoscopy -positive Cologuard Narrative: this patient is referred for colonoscopy after finding a Cologuard positive test. Her last colonoscopy was more than 5 years ago. Review of Systems Review of Systems: All systems reviewed & are unremarkable except as noted in HPI and below PMFSH Past Medical History Medical History Abdominal pain HTN (hypertension) Ulcer IBS (irritable bowel syndrome) GERD (gastroesophageal reflux disease) Diabetes Breast cancer Allergies H/O malignant neoplasm of breast Surgical History Surgical History H/O total knee replacement H/O gastric bypass H/O hemorrhoidectomy H/O breast reconstruction H/O mastectomy H/O foot surgery H/O: hysterectomy Social History Social History Years smoked: 15 Smoking status: Former smoker Living arrangements: alone Occupation/Education: retired Gender identity (if verbalized by the patient): Female Meds Home Medications and Allergies Home Medications ?Medication ?Instructions ?Recorded ?Confirmed ?Type amlodipine 5 mg tablet 5 mg PO DAILY 01/25/22 06/14/25 History aspirin 81 mg capsule 81 mg PO DAILY 01/25/22 06/14/25 History duloxetine 30 mg capsule,delayed 30 mg PO DAILY 01/25/22 06/14/25 History release furosemide 20 mg tablet 10 mg PO QAM 01/25/22 06/14/25 History hydrocodone 7.5 mg-acetaminophen 1 tablet PO Q4-6H PRN Pain 01/25/22 06/06/25 History 300 mg tablet letrozole 2.5 mg tablet 2.5 mg PO DAILY 01/25/22 06/14/25 History metformin 500 mg tablet 500 mg PO BID 01/25/22 06/14/25 History omeprazole 20 mg capsule,delayed 20 mg PO DAILY 01/25/22 06/14/25 History release trazodone 100 mg tablet 100 mg PO QHS PRN Sleep 01/25/22 06/06/25 History atorvastatin 40 mg tablet 40 mg PO DAILY 10/07/23 06/14/25 History ferrous sulfate 325 mg (65 mg 325 mg PO DAILY 10/07/23 06/14/25 History iron) tablet (Feosol) semaglutide 1 mg/dose (4 mg/3 mL) 2 mg subcut WEEKLY 11/01/23 06/14/25 History subcutaneous pen injector (Ozempic) sodium,potassium,mag sulfates 17.5 See Rx Instructions PO .COMPLEX 06/06/25 Rx gram-3.13 gram-1.6 gram oral soln #354 mL (Suprep Bowel Prep Kit) Allergies Allergy/AdvReac Type Severity Reaction Status Date / Time No Known Allergies Allergy Mild Verified 06/14/25 09:31 Vital Signs Vital Signs - 24 hr 06/14/25 09:25 Temperature 97.3 F L Pulse Rate 90 Respiratory Rate 16 Blood Pressure 148/77 H Pulse Oximetry 100 Oxygen Delivery Room Air Exam Const: General: cooperative and healthy appearing Resp: Effort & Inspection: normal respiratory effort and able to speak in complete sentences Auscultation: clear to auscultation bilaterally Cardio: Rate: regular rate Rhythm: regular rhythm GI: Inspection: normal to inspection GI Palp: No No hepatosplenomegaly present Auscultation: normal bowel sounds Rectal Exam: deferred Skin: General skin exam: normal color Psych: Appearance: grossly normal Mental Status: mental status grossly normal Assessment and Plan Assessment and plan (1) Positive colorectal cancer screening using Cologuard test: Code(s): R19.5 - Other fecal abnormalities Status: Acute Assessment and Plan: The patient is deemed a good candidate for the procedure. Consent signed. Will proceed.
[2025-06-14 11:40] VITALS: BP 128/73; PULSE 88; RESP 23; O2SAT 100
--- NOTE | 2025-06-14 11:44 | S_PTH ---
PATIENT: Oksana Vaughn LOC: [facility] U#:[id number] AGE/SX: 75/F ROOM: RE06/14/[address]: Alvaro Ramirez MD : [id number] BED: DIS: 06/14/2025 SPEC #: [id number] RECD: 06/14/25 12:58 STATUS: MARTIN REQ #: [id number] GABRIEL: 06/14/25 11:[address]: Alvaro Ramirez DEPT: [facility] Surgical RECD BY: Tori Bianchi ENTERED: 06/14/25 13:01 SP TYPE: Surgical OTHR DR: Lebron BeauchampMD Tissues: A - Colon Polypectomy B - Colon Polypectomy C - Colon Polypectomy D - Colon Polypectomy E - Colon Polypectomy Procedures: Hematoxylin and Eosin Stain Gross and Microscopic Level 4
[2025-06-14 11:50] VITALS: BP 139/77; PULSE 82; RESP 22; O2SAT 100
[2025-06-14 12:00] VITALS: BP 155/80; PULSE 79; RESP 22; O2SAT 100
== END 2025-06-14 12:10 | disposition home or self-care (01) ==
PROVIDERS: PCP Internal Medicine; Referring Provider Internal Medicine; Visit Provider Internal Medicine Gastroenterology
PROC: 0DJD8ZZ Inspection of Lower Intestinal Tract, Via Natural or Artificial Opening Endoscopic (ICD-10-PCS; CPT 45378; principal; 2025-06-14 11:00)
DX: R19.5 Other fecal abnormalities (principal); D12.5 Benign neoplasm of sigmoid colon; D12.0 Benign neoplasm of cecum; D12.2 Benign neoplasm of ascending colon; D12.3 Benign neoplasm of transverse colon; D12.4 Benign neoplasm of descending colon; K63.5 Polyp of colon; I10 Essential (primary) hypertension; E11.9 Type 2 diabetes mellitus without complications; K21.9 Gastro-esophageal reflux disease without esophagitis; K58.9 Irritable bowel syndrome, unspecified; Z79.82 Long term (current) use of aspirin; Z79.891 Long term (current) use of opiate analgesic; Z79.84 Long term (current) use of oral hypoglycemic drugs; Z79.85 Long-term (current) use of injectable non-insulin antidiabetic drugs; Z98.890 Other specified postprocedural states; Z98.84 Bariatric surgery status; Z90.10 Acquired absence of unspecified breast and nipple; Z87.891 Personal history of nicotine dependence; Z87.11 Personal history of peptic ulcer disease; Z85.3 Personal history of malignant neoplasm of breast
CPT/HCPCS: 45385; 82948; 88305; J2003; J2704; J7120